=== PATIENT | male | born 1945 | race Caucasian/White ===

== ENCOUNTER 2016-10-26 20:01 | Inpatient (IN) | payer OTHER, MEDICARE ==
[~2016-10-26] VITALS: Ht 162.6 cm; Wt 81.6 kg
[2016-10-26] MEDS ORDERED: LIPITOR10 M1 PO (20:20)
[2016-10-26] MEDS ORDERED: ATIVAN0.5 M1 PO (20:20)
[2016-10-26] MEDS ORDERED: HYDROMORPHONE HC2 M1 PO (20:20)
[2016-10-26] MEDS ORDERED: HYDROMORPHONE HC4 M1 PO (20:20)
[2016-10-26] MEDS ORDERED: METOPROLOL TART25 M1 PO (20:21)
[2016-10-26] MEDS ORDERED: SYNTHROID100 MCG PO (20:23)
[2016-10-26] MEDS ORDERED: KEPPRA PO (20:23)
[2016-10-26] MEDS ORDERED: ZOLOFT100 M1 PO (20:24)
[2016-10-26] MEDS ORDERED: POTASSIUM CHLO20 ME2 PO (20:24)
[2016-10-26] MEDS ORDERED: CARTIA XT180 M1 PO (20:25)
--- NOTE | 2016-10-26 20:28 | ED NEURO DEFICIT/STROKE ---
History of Present Illness General Chief Complaint: Seizure Stated Complaint: BIBA WITH SEIZURE Source: patient Exam Limitations: no limitations Allergies Coded Allergies: Iodinated Contrast Media - Oral and (10/26/16) Reconcile Medications Diltiazem HCl (Cartia Xt) 180 MG CAP.ER.24H 1 CAP PO DAILY HEART/BP (Reported ) Levetiracetam (Keppra XR) 750 MG TAB.ER.24H 4 TAB PO DAILY SEIZURE (Reported) Levothyroxine Sodium (Synthroid) 100 MCG TABLET 1 TAB PO DAILY THYROID ( Reported) Potassium Chloride 20 MEQ TAB.ER.PRT 1 TAB PO BID SUPPLEMENT (Reported) Sertraline HCl (Zoloft) 100 MG TABLET 1 TAB PO DAILY MENTAL HEALTH (Reported) Triage Nurses Notes Reviewed? yes HPI: This patient is a 71-year-old male with past medical history including seizures and TIA who presented to the emergency department today brought in by ambulance for evaluation of questionable seizure and possible stroke. The patient's brother is currently at the bedside. The patient's mother reported that he last saw this patient normal at approximately noon or 1:00 this afternoon. The patient reported that he remembers that he was on the computer the last he can remember and then felt the urge to urinate and got up to go to the bathroom. After that he is not really sure what happened. The patient's brother reported that he found him on the floor of the bathroom with toilet paper bunched up around him. The patient had been trying to call 911, but was unable to do so. The patient's mother reported that he found him on the floor at approximately 7: 10 PM. The patient reported that he was feeling fine prior to the incident. He reported that now he has a slight headache. The patient reported, "I am having trouble with my fine motor skills in my left hand, but I think my gross motor skills are still intact." The patient does not know if he had any uncontrollable defecation or urination. He did not bite his tongue. He is unsure if he hit his head or not. The patient is denying any current chest pain , difficulty breathing, abdominal pain, or back pain. (BIN IGLESIAS,ELIZABETH) Vital Signs & Intake/Output Vital Signs & Intake/Output Vital Signs Date Time Temp Pulse Resp B/P Pulse O2 O2 Flow FiO2 Ox Delivery Rate 10/27 0800 94 Nasal 2.0L Cannula 10/27 0659 98.8 70 18 120/70 94 Nasal 2.0L Cannula 10/27 0107 98.0 92 18 160/80 93 Nasal 2.0L Cannula 10/27 0029 93 Nasal 2.0L Cannula 10/27 0007 92 18 163/87 92 Room Air 2.0L 10/26 2309 98.1 84 18 154/64 99 Nasal 2.0L Cannula 10/26 2130 64 18 141/75 94 Nasal 3.0L Cannula 10/26 2045 99 Room Air 10/26 2045 98.0 89 18 141/75 100 Room Air ED Intake and Output 10/27 0000 10/26 1200 Intake Total 0 Output Total Balance 0 Intake, Oral 0 Patient 220 lb Weight Past History Travel History Traveled to [place] past 21 day No Medical History Any Pertinent Medical History? see below for history Neurological: seizure, TIA Surgical History Surgical History: non-contributory Family History Hx Contributory? No (ELIZABETH STEWARD PA-C) Review of Systems Review of Systems Constitutional: Reports: no symptoms. EENTM: Reports: no symptoms. Respiratory: Reports: no symptoms. Cardiovascular: Reports: no symptoms. GI: Reports: no symptoms. Genitourinary: Reports: no symptoms. Musculoskeletal: Reports: no symptoms. Skin: Reports: no symptoms. Neurological/Psychological: Reports: see HPI. All Other Systems: Reviewed and Negative (ELIZABETH STEWARD PA-C) Physical Exam Physical Exam General Appearance: well developed/nourished, no apparent distress, alert, awake Cranial Nerves: normal hearing, normal speech, PERRL, NO TONGUE DEVIATION. nO FACIAL DROOP. lEFT-SIDED ARM AND LEG PARESTHESIAS Comments: Well-developed well-nourished person in no acute distress HEENT: Head is normocephalic/atraumatic with no bony deformities or step-offs of the skull, moist mucous membranes Left sided visual field deficit aced on confrontation testing. Nose is atraumatic. Neck: Supple. No midline tenderness Back: Normal inspection Cardiovascular: Regular rate and rhythm with no murmurs. No carotid bruits Respiratory: No respiratory distress. Breath sounds clear to auscultation bilaterally Abdomen: Soft, nontender and nondistended Extremity: Normal and equal pulses. Neuro: Alert oriented x3, cranial nerves II through XII grossly intact. Decreased fine motor abilities in the left hand. Left-sided upper and lower extremity weakness. Skin: No appreciable rash on exposed skin, skin is warm and dry. Psych: Mood and affect is normal Core Measures CVA/TIA Diagnosis: Yes Severe Sepsis Present: No Septic Shock Present: No (BIN IGLESIAS,ELIZABETH) Progress Differential Diagnosis: acute glaucoma, Robledo's Palsy, drug intoxication, electrolyte imbalance, encephalitis, intracranial Hem., intracranial mass/tumor, seizure disorder, stroke, subarachnoid Hem., vertebrobasilar insuff. Diagnostic Imaging: Viewed by Me: Radiology Read, CT Scan. Discussed w/RAD: Radiology Read, CT Scan. Radiology Impression: PATIENT: CLIFTON QUIÑONES PRESENT AGE: 71 PATIENT ACCOUNT NO: [id number] : 47 LOCATION: [facility] ORDERING PHYSICIAN: ELIZABETH STEWARD PA-C SERVICE DATE: 10/26/16 EXAM TYPE: CAT - CT HEAD WO IV CONTRAST EXAMINATION: CT HEAD WITHOUT CONTRAST CLINICAL INFORMATION: Left-sided weakness. COMPARISON: None. TECHNIQUE: Contiguous axial imaging was performed from the skull base to vertex without intravenous administration of contrast. DLP: 601 mGy-cm. FINDINGS: There is no evidence of acute intracranial hemorrhage or territorial infarction. No abnormal mass effect or midline shift is seen. Merino to white matter differentiation is well preserved. No extra-axial fluid collections are identified. The ventricles and sulcal spaces are proportionate without hydrocephalus. There is mild periventricular white matter hypoattenuation was is nonspecific but likely reflects a mild degree of ischemic microangiopathy. Focal hypoattenuation within the right cerebellar hemisphere likely reflects old infarct. The osseous structures and soft tissues are unremarkable. The mastoid air cells are fairly well aerated. Mucosal thickening/mucous retention cysts in the inferior aspects of the bilateral maxillary sinuses. IMPRESSION: 1. No acute intracranial pathology. 2. 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 DICTATED BY: JAMSHID STEWART MD DATE/TIME DICTATED:10/26/162049 SENIOR QUALITY METHODS SPECIALIST:ALEJANDRA DATE/TIME TRANSCRIBED:2049 CONFIDENTIAL, DO NOT COPY WITHOUT APPROPRIATE AUTHORIZATION. < Electronically signed in Other Vendor System> SIGNED BY: JAMSHID STEWART MD 10/26/162056 CXR Impression: PATIENT: CLIFTON QUIÑONES PRESENT AGE: 71 PATIENT ACCOUNT NO: [id number] : 47 LOCATION: [facility] ORDERING PHYSICIAN: LEIZABETH STEWARD PA-C SERVICE DATE: 10/26/16 EXAM TYPE: RAD - XRY- PORTABLE CHEST XRAY EXAMINATION: XR PORTABLE CHEST CLINICAL INFORMATION: Pneumonia COMPARISON: None. TECHNIQUE: Portable view of the chest was obtained. FINDINGS: The x-rays taken with rotation toward the left side. This limits evaluation of the cardiomediastinal silhouette. The lungs are clear. The pulmonary vascularity is normal. No pleural effusions or pneumothorax seen. IMPRESSION: No acute pulmonary finding. DICTATED BY: ENOC LOPEZ MD DATE/ TIME DICTATED:10/26/162229 SENIOR QUALITY METHODS SPECIALIST:ALEJANDRA DATE/TIME TRANSCRIBED: 10/26/162229 CONFIDENTIAL, DO NOT COPY WITHOUT APPROPRIATE AUTHORIZATION. < Electronically signed in Other Vendor System> SIGNED BY: ENOC LOPEZ MD 10/26/162237 Initial ED EKG: normal axis, normal intervals, normal sinus rhythm, LVH, no ST T wave changes, 69 bpm Comments: 10/26/2016 8:27:36 PM: Dr. Grier was at the patient's bedside for [id number] evaluation. Atypical seizure disorder versus acute stroke. Uncertain of exact time this patient was last normal period. 10/26/2016 10:47:29 PM: I discussed this patient with on-call neurologist, Dr. Pena. Suggested giving this patient aspirin 325MG daily and ordering an MRI of the brain for tomorrow. This patient will be a telemetry admission, so he was officially handed off to Dr. Grier. (BIN IGLESIAS,ELIZABETH) Plan of Care: Orders Procedure Date/time Status Heart Healthy Diet 10/27 B Active ECHOCARDIOGRAM 10/27 0900 Active TROPONIN LEVEL 10/27 0800 Complete LIPID PANEL 10/27 08 Complete CBC WITHOUT DIFFERENTIAL 10/27 08 Active BASIC ELECTROLYTES PLUS BUN&CR 10/27 08 Complete EKG 10/27 08 Active TROPONIN LEVEL 10/27 0200 Complete EKG 10/27 0200 Active Pathway - chart 10/27 38 Active House Staff 10/27 38 Active Patient Data 10/27 38 Active Code Status 01/15 0039 Active Lab Add-on Test 10/27 UNK Active VTE Mechanical Prophylaxis 10/27 UNK Active MISTAKE 10/27 UNK Active Telemetry/Diaphragm Builder 10/27 UNK Active Precautions 10/27 UNK Active Vital Signs 10/26 2355 Active Teach/Educate 10/26 235 Active Nutritional Intake, Monitor 10/26 2355 Active Isolation 10/26 2355 Active Intake & Output 10/26 235 Active Patient Care Conference 10/26 235 Active Activity/Ambulation 10/26 2355 Active Patient Data 10/26 2318 Active Add-on Test (ER Only) 10/26 223 Active NIH Stroke Scale 10/26 2116 Active OXYGEN SETUP (GEN) 10/26 2109 Active Saline Lock 10/26 2109 Active Admit to inpatient 10/26 2109 Active Vital Signs 10/26 2109 Active Activity/Ambulation 10/26 2109 Active Code Status 10/26 2109 Complete Intake & Output 10/26 2050 Active THYROID STIMULATING HORMONE 10/26 2038 Complete FREE T4 10/26 2038 Complete D-DIMER 10/26 2038 Complete EKG 10/26 2027 Active TROPONIN LEVEL 10/26 2018 Complete PARTIAL THROMBOPLASTIN TIME 10/26 2018 Complete PROTHROMBIN TIME 10/26 2018 Complete PROLACTIN 10/26 2018 Complete COMPREHENSIVE METABOLIC PANEL 10/26 2018 Complete CBC WITHOUT DIFFERENTIAL 10/26 2018 Complete TYPE & SCREEN (NOT X-MATCH) 10/26 2018 Complete Current Medications Sig/Cristo Start time Last Medication Dose Stop Time Status Admin Atorvastatin Calcium 80 MG 1700 10/27 1700 AC (Lipitor) Potassium Chloride 0 .STK-MED ONE 10/27 0110 CAN (K-Dur) Laboratory Tests 10/27/16 0834: Anion Gap 12, Estimated GFR > 60, BUN/Creatinine Ratio 20.0, Troponin I < 0.01, Triglycerides 149, Cholesterol 122, LDL Cholesterol, Calc 46 L, HDL Cholesterol 47, Cholesterol/HDL Ratio 3 10/27/16 0207: Troponin I < 0.01 10/26/162038: Anion Gap 15, Estimated GFR > 60, BUN/Creatinine Ratio 28.8 H, Glucose 95, Calcium 9.9, Total Bilirubin 0.5, AST 26, ALT 33, Alkaline Phosphatase 80, Troponin I < 0.01, Total Protein 6.7, Albumin 4.2, Globulin 2.5, Albumin/ Globulin Ratio 1.7, TSH 2.250, Free T4 1.48, Prolactin 10.4, PT 11.2, INR 1.07, APTT 27, D-Dimer 256 H, CBC w Diff NO MAN DIFF REQ, RBC 4.80, MCV 85.6, MCH 28.8, RDW 13.1, MPV 8.4, Gran % 85.3 H, Lymphocytes % 9.7 L, Monocytes % 3.5, Eosinophils % 1.4, Basophils % 0.1, Absolute Granulocytes 8.6 H, Absolute Lymphocytes 1.0 L, Absolute Monocytes 0.4, Absolute Eosinophils 0.1, Absolute Basophils 0, PUBS MCHC 33.7 Departure Departure Disposition: STILL A PATIENT Condition: Stable Clinical Impression Primary Impression: CVA (cerebral vascular accident) Qualifiers: CVA mechanism: unspecified Qualified Code: I63.9 - Cerebral infarction, unspecified Departure Forms: Customer Survey General Discharge Information Admission Note Documentation of Exam: Documentation of any treatments & extenuating circumstances including Concerns Regarding Discharge (functional status, medication knowledge or non-compliance, living conditions, etc.) that warrant an admission rather than observation: [ This patient is a 71-year-old male with a past medical history including prior TIA and seizure disorder currently on Keppra who presented to the emergency department today brought in by ambulance for possible seizure and to rule out stroke. This patient has complete left-sided neglect and left-sided visual field deficit. This patient will need to be admitted to telemetry for neurology consultation, EEG, trend labs, brain MRI, cardiac monitoring, oxygen therapy, oxygen saturation monitoring, and close monitoring. This patient is a poor candidate for outpatient treatment. Premature discharge could prove medically harmful.] (BIN IGLESIAS,ELIZABETH) PA/EMR IMPLEMENTATION SPECIALIST Co-Sign Statement Statement: ED Attending supervision documentation- x I saw and evaluated the patient. I have also reviewed all the pertinent lab results and diagnostic results. I agree with the findings and the plan of care as documented in the PA's/EMR IMPLEMENTATION SPECIALIST's documentation. [] I have reviewed the ED Record and agree with the PA's/EMR IMPLEMENTATION SPECIALIST's documentation. [] Additions or exceptions (if any) to the PAs/EMR IMPLEMENTATION SPECIALIST's note and plan are summarized below: [] (VINCE MAJOR,SOY)
--- NOTE | 2016-10-26 20:57 | CT SCAN REPORT ---
EXAMINATION: CT HEAD WITHOUT CONTRAST CLINICAL INFORMATION: Left-sided weakness. COMPARISON: None. TECHNIQUE: Contiguous axial imaging was performed from the skull base to vertex without intravenous administration of contrast. DLP: 601 mGy-cm. FINDINGS: There is no evidence of acute intracranial hemorrhage or territorial infarction. No abnormal mass effect or midline shift is seen. Merino to white matter differentiation is well preserved. No extra-axial fluid collections are identified. The ventricles and sulcal spaces are proportionate without hydrocephalus. There is mild periventricular white matter hypoattenuation was is nonspecific but likely reflects a mild degree of ischemic microangiopathy. Focal hypoattenuation within the right cerebellar hemisphere likely reflects old infarct. The osseous structures and soft tissues are unremarkable. The mastoid air cells are fairly well aerated. Mucosal thickening/mucous retention cysts in the inferior aspects of the bilateral maxillary sinuses. IMPRESSION: 1. No acute intracranial pathology. 2. 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
[2016-10-26 20:59] LABS: ABSOLUTE BASOPHIL COUNT 0 /CUMM (0.0-0.2); ABSOLUTE EOSINOPHIL COUNT 0.1 /CUMM (0.0-0.7); ABSOLUTE GRANULOCYTE CT 8.6 /CUMM (1.4-6.5); ABSOLUTE MONOCYTE COUNT 0.4 /CUMM (0.10-0.60); BASOPHIL % 0.1 % (0.0-2.0); EOSINOPHIL % 1.4 % (0-5); GRANULOCYTE % 85.3 % (42.2-75.2); HEMATOCRIT 41.1 % (42-52); MEAN CORPUSCULAR HGB 28.8 PG (27.0-31.0); MEAN CORPUSCULAR HGB CONC 33.7 G/DL (33.0-37.0); MEAN CORPUSCULAR VOLUME 85.6 FL (80.0-94.0); MEAN PLATELET VOLUME 8.4 FL (7.4-10.4); PLATELET COUNT 290 /CUMM (130-400); RBC DISTRIBUTION WIDTH 13.1 % (11.5-14.5); WHITE BLOOD CELL COUNT 10.1 /CUMM (4.8-10.8)
[2016-10-26 21:13] LABS: PT 11.2 SEC (9.4-12.5); PTT 27 SEC (25-37)
--- NOTE | 2016-10-26 22:38 | RADIOLOGY REPORT ---
EXAMINATION: XR PORTABLE CHEST CLINICAL INFORMATION: Pneumonia COMPARISON: None. TECHNIQUE: Portable view of the chest was obtained. FINDINGS: The x-rays taken with rotation toward the left side. This limits evaluation of the cardiomediastinal silhouette. The lungs are clear. The pulmonary vascularity is normal. No pleural effusions or pneumothorax seen. IMPRESSION: No acute pulmonary finding.
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
[2016-10-27 01:07] VITALS: BP 160/80
--- NOTE | 2016-10-27 04:31 | Admission Certification ---
Admission Certification Certification Statement - As attending physician, I certify that at the time of - admission, based on clinical presentation, severity of - symptoms, need for further diagnostic testing and - therapeutic interventions, and risk of adverse outcomes - without in-hospital treatment, in my clinical assessment, - this patient requires an acute hospital stay for a minimum - of two nights or longer. I have also considered psychsocial - factors such as support system, advanced age, financial - issues, cognitive issues, and failed out-patient treatments, - past re-admission history, safety of patient, and lack of - compliance as applicable. Specific rationale supporting this admission is: Stroke vs. Seizure.
[2016-10-27 06:59] VITALS: BP 120/70
--- NOTE | 2016-10-27 10:46 | ULTRASOUND REPORT ---
EXAMINATION: US DUPLEX CAROTID, BILATERAL CLINICAL INDICATION: Acute onset neuro deficit COMPARISON: None. TECHNIQUE: Duplex ultrasound with spectral analysis and color flow imaging was performed of both carotid arteries. FINDINGS: On the right, there is no significant plaque present at the carotid bifurcation. In the distal CCA, the peak systolic velocity is 84 cm/sec. In the proximal ICA, the peak systolic velocity is 42 cm/sec, and the end diastolic velocity is 11 cm/sec. Peak systolic velocity of the external carotid artery is 60 cm/s. . On the left, there is no significant plaque present at the carotid bifurcation. In the distal CCA, the peak systolic velocity is 70 cm/sec. In the proximal ICA, the peak systolic velocity is 50 cm/sec, and the end diastolic velocity is 12 cm/sec. Peak systolic velocity of the external carotid artery is 93 cm/s. The vertebral arteries show antegrade flow with normal waveforms bilaterally. IMPRESSION: 1. The right internal carotid artery shows no hemodynamically significant stenosis. 2. The left internal carotid artery shows no hemodynamically significant stenosis. Right and left internal carotid artery stenoses fall in the 0-49% category by duplex Doppler velocity spectral waveform analysis.
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
[2016-10-27 16:00] VITALS: BP 120/66
[2016-10-27 19:07] VITALS: BP 142/82
[2016-10-27 23:54] VITALS: BP 130/70
[2016-10-28 08:00] VITALS: BP 140/70
[2016-10-28 08:32] LABS: ABSOLUTE BASOPHIL COUNT 0 /CUMM (0.0-0.2); ABSOLUTE EOSINOPHIL COUNT 0.3 /CUMM (0.0-0.7); ABSOLUTE GRANULOCYTE CT 5.7 /CUMM (1.4-6.5); ABSOLUTE LYMPH COUNT 1.3 /CUMM (1.2-3.4); ABSOLUTE MONOCYTE COUNT 0.8 /CUMM (0.10-0.60); BASOPHIL % 0.2 % (0.0-2.0); EOSINOPHIL % 3.8 % (0-5); GRANULOCYTE % 70.8 % (42.2-75.2); HEMATOCRIT 39.8 % (42-52); MEAN CORPUSCULAR HGB 29.1 PG (27.0-31.0); MEAN CORPUSCULAR HGB CONC 33.9 G/DL (33.0-37.0); MEAN PLATELET VOLUME 8.4 FL (7.4-10.4); PLATELET COUNT 233 /CUMM (130-400); RBC DISTRIBUTION WIDTH 13.1 % (11.5-14.5); RED BLOOD CELL CT 4.63 /CUMM (4.70-6.10)
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
--- NOTE | 2016-10-28 14:13 | MRI REPORT ---
MR BRAIN WITHOUT IV CONTRAST CLINICAL INFORMATION: Confusion and left-sided weakness. COMPARISON: Head CT 10/26/2016. TECHNIQUE: MRI of the brain without contrast was obtained using routine sequences. FINDINGS: There is no hydrocephalus, extra-axial surface collection, or herniation. Mild T2 signal changes within the supratentorial white matter suggesting mild chronic microangiopathy. 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 The major flow voids at the skull base are preserved. Accounting for artifact on diffusion-weighted series, no acute infarcts are appreciated. There is no intracranial hemorrhage on the gradient recalled echo acquisition. The midline structures are normal. The cerebellar tonsils are normally positioned. The cerebellum and brainstem are normal. The craniocervical junction is normal. Osseous marrow signal intensity is homogenous. The visualized soft tissues are unremarkable. There is mild mucosal thickening throughout the ethmoid air cells bilaterally. Retention cyst within the left maxillary sinus inferiorly mild mucosal thickening within the maxillary sinuses bilaterally. Mastoid air cells are well-aerated. IMPRESSION: - No acute intracranial findings. No acute infarcts. - Mild chronic microangiopathy. 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
--- NOTE | 2016-10-28 14:38 | PN- Neurology ---
Subjective Subjective: confused, as before. no seizure activity reported Review of Systems: denied headache Objective Vital Signs and I&Os Vital Signs Date Time Temp Pulse Resp B/P Pulse O2 O2 Flow FiO2 Ox Delivery Rate 10/28 0800 97.6 64 20 140/70 93 Room Air 10/27 2354 98.0 72 20 130/70 95 Room Air 10/27 1907 99.0 58 20 142/82 92 Room Air 10/27 1604 98 Nasal 2.0L Cannula 10/27 1600 97.4 64 18 120/66 92 Room Air 10/27 1528 97.4 64 18 120/66 92 Room Air Intake & Output 10/28 1600 10/28 0800 10/28 0000 10/27 1600 10/27 0800 10/27 0000 Intake Total 400 120 300 30 240 0 Output Total 902 123 6888 Balance 400 -180 300 -470 -1010 0 Intake, IV 20 Intake, Oral 400 120 280 30 240 0 Output, Urine [phone] Patient 180 lb 220 lb Weight Physical Exam: Awake, language OK speech clear, confused. 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 left sensory extinction and asteriognosis: could not recognise coin or spoon manager of financial reporting equal Current Medications: Current Medications Sig/Cristo Start time Last Medication Dose Route Stop Time Status Admin Aspirin Buffered 81 MG DAILY 10/27 1000 AC 10/28 PO 0947 Atorvastatin Calcium 80 MG 1700 10/27 1700 AC 10/27 PO 1718 Diltiazem HCl 180 MG DAILY 10/27 1000 AC 10/28 PO 0947 Enoxaparin Sodium 40 MG DAILY 10/28 1000 AC 10/28 SC 0952 Levetiracetam 1,500 MG BID 10/27 1000 AC 10/28 PO 0947 Levothyroxine Sodium 0.1 MG DAILY AC 10/27 0700 AC 10/28 PO 0646 Potassium Chloride 20 MEQ BID 10/27 0014 AC 10/28 PO 0947 Sertraline HCl 100 MG DAILY 10/27 1000 AC 10/28 PO 0947 Results Last 24 Hours of Lab Results: Laboratory Tests 10/28 0710 Chemistry Sodium (137 - 145 mmol/L) 142 Potassium (3.5 - 5.1 mmol/L) 4.4 Chloride (98 - 107 mmol/L) 103 Carbon Dioxide (22 - 30 mmol/L) 33 H Anion Gap (5 - 16) 6 BUN (9 - 20 mg/dL) 18 Creatinine (0.7 - 1.2 mg/dL) 0.9 Estimated GFR (>60 ml/min) > 60 BUN/Creatinine Ratio (7 - 25 %) 20.0 Hematology CBC w Diff NO MAN DIFF REQ WBC (4.8 - 10.8 /CUMM) 8.0 RBC (4.70 - 6.10 /CUMM) 4.63 L Hgb (14.0 - 18.0 G/DL) 13.5 L Hct (42 - 52 %) 39.8 L MCV (80.0 - 94.0 FL) 86.0 MCH (27.0 - 31.0 PG) 29.1 RDW (11.5 - 14.5 %) 13.1 Plt Count (130 - 400 /CUMM) 233 MPV (7.4 - 10.4 FL) 8.4 Gran % (42.2 - 75.2 %) 70.8 Lymphocytes % (20.5 - 51.1 %) 15.6 L Monocytes % (1.7 - 9.3 %) 9.6 H Eosinophils % (0 - 5 %) 3.8 Basophils % (0.0 - 2.0 %) 0.2 Absolute Granulocytes (1.4 - 6.5 /CUMM) 5.7 Absolute Lymphocytes (1.2 - 3.4 /CUMM) 1.3 Absolute Monocytes (0.10 - 0.60 /CUMM) 0.8 H Absolute Eosinophils (0.0 - 0.7 /CUMM) 0.3 Absolute Basophils (0.0 - 0.2 /CUMM) 0 PUBS MCHC (33.0 - 37.0 G/DL) 33.9 Recent Imaging Studies: MRI brain: There is no hydrocephalus, extra-axial surface collection, or herniation. Mild T2 signal changes within the supratentorial white matter suggesting mild chronic microangiopathy. There are multiple chronic lacunar infarcts within the cerebellar hemispheres bilaterally as well as the dorsal ilssy. The major flow voids at the skull base are preserved. Accounting for artifact on diffusion-weighted series, no acute infarcts are appreciated. There is no intracranial hemorrhage on the gradient recalled echo acquisition. The midline structures are normal. The cerebellar tonsils are normally positioned. The cerebellum and brainstem are normal. The craniocervical junction is normal. Osseous marrow signal intensity is homogenous. The visualized soft tissues are unremarkable. There is mild mucosal thickening throughout the ethmoid air cells bilaterally. Retention cyst within the left maxillary sinus inferiorly mild mucosal thickening within the maxillary sinuses bilaterally. Mastoid air cells are well-aerated. IMPRESSION: - No acute intracranial findings. No acute infarcts. - Mild chronic microangiopathy. 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 Assessment/Plan Assessment: Suspect event leading to admission was a partial complex seizure and that clinical deficits of right parietal dysfunction represent TBI now on increased Keppra dose Plan: EEG pending contact hospital in [place] for discharge summary
--- NOTE | 2016-10-28 15:46 | Cons- Cardiology ---
See Addendum General Information and HPI Consulting Request Date of Consult: 10/28/16 Requested By: BROOKE MAJOR,JUAN Reason for Consult: Possible CVA History of Present Illness: The patient is a 71-year-old male with history of paroxysmal SVT, stable on diltiazem, who was admitted for possible CVA/TIA versus seizure. He was in his usual state of health until October 26 when he was urinating when he developed difficulty with fine motor activity localized on his left side. He also noted dizziness, nausea, and increased hand tremor. His usual intention tremor. He called EMS. Upon the arrival of EMS, he was noted to have an episode of dysarthria. No chest pain. No syncope. No recent palpitations. No shortness of breath. No nausea or vomiting. 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 Allergies/Medications Allergies: Coded Allergies: Iodinated Contrast Media - Oral and (10/26/16) Home Med List: Diltiazem HCl (Cartia Xt) 180 MG CAP.ER.24H 1 CAP PO DAILY HEART/BP (Reported ) Levetiracetam (Keppra XR) 750 MG TAB.ER.24H 4 TAB PO DAILY SEIZURE (Reported) Levothyroxine Sodium (Synthroid) 100 MCG TABLET 1 TAB PO DAILY THYROID ( Reported) Potassium Chloride 20 MEQ TAB.ER.PRT 1 TAB PO BID SUPPLEMENT (Reported) Sertraline HCl (Zoloft) 100 MG TABLET 1 TAB PO DAILY MENTAL HEALTH (Reported) Current Medications: Current Medications Sig/Cristo Start time Last Medication Dose Route Stop Time Status Admin Aspirin Buffered 81 MG DAILY 10/27 1000 AC 10/28 PO 0947 Atorvastatin Calcium 80 MG 1700 10/27 1700 AC 10/27 PO 1718 Diltiazem HCl 180 MG DAILY 10/27 1000 AC 10/28 PO 0947 Enoxaparin Sodium 40 MG DAILY 10/28 1000 AC 10/28 SC 0952 Levetiracetam 1,500 MG BID 10/27 1000 AC 10/28 PO 0947 Levothyroxine Sodium 0.1 MG DAILY AC 10/27 0700 AC 10/28 PO 0646 Potassium Chloride 20 MEQ BID 10/27 0014 AC 10/28 PO 0947 Sertraline HCl 100 MG DAILY 10/27 1000 AC 10/28 PO 0947 Review of Systems Review of Systems: No rash. No diaphoresis. No hemoptysis. No hematemesis. No melena. All other systems were reviewed, and were noted to be negative. Past History Travel History Traveled to [place] past 21 day No Medical History Neurological: seizure, TIA EENT: NONE Cardiovascular: SVT Respiratory: asthma Gastrointestinal: NONE Hepatic: NONE Renal: NONE Musculoskeletal: MUSCLE CRAMPS Psychiatric: depression Endocrine: HYPOTHYROID Blood Disorders: NONE Cancer(s): NONE Surgical History Surgical History: non-contributory Family History Relations & Conditions If Any: FATHER FH: stroke Psychosocial History Where Do You Live? 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[place] Exam & Diagnostic Data Vital Signs and I&O Vital Signs Date Time Temp Pulse Resp B/P Pulse O2 O2 Flow FiO2 Ox Delivery Rate 10/28 08 97.6 64 20 140/70 93 Room Air 10/27 2354 98.0 72 20 130/70 95 Room Air 10/27 1907 99.0 58 20 142/82 92 Room Air 10/27 1604 98 Nasal 2.0L Cannula 10/27 1600 97.4 64 18 120/66 92 Room Air Intake & Output 10/28 1600 10/28 0800 10/28 0000 10/27 1600 10/27 0800 10/27 0000 Intake Total 400 120 300 30 240 0 Output Total 658 490 9893 Balance 400 -180 300 -470 -1010 0 Intake, IV 20 Intake, Oral 400 120 280 30 240 0 Output, Urine [phone] Patient 180 lb 220 lb Weight Physical Exam: Gen: The patient is in no acute distress HEENT: Normal nose, ears, and oropharynx. Pupils equal bilaterally. Conjunctiva normal. Neck: Supple with no JVD, no masses, and no thyromegaly Lungs: Clear to auscultation with normal respiratory effort Heart: RRR, S1, S2, no murmurs. No peripheral edema, 2+ pulses in the lower extremities bilaterally Abdomen: Soft, nontender, no masses. No hepatomegaly. No splenomegaly Extremities: No clubbing or cyanosis. Normal muscle strength in the upper and lower extremities Skin: Normal skin turgor with no skin ulcers or lesions noted. Neuro: Cranial nerves intact. Sensation intact Psych: Alert and oriented 3 with appropriate affect Assessment/Plan Assessment/Plan The patient is a 71-year-old male with history of SVT and seizures who presented with dysarthria, confusion, and motor deficit. He is being evaluated for possible CVA versus seizure versus sequelae secondary to old TBI. He appears to be stable from a cardiac standpoint with no recent cardiac symptoms. He is in sinus rhythm on telemetry. Recommendations: * Echocardiogram to evaluate for structural heart disease or cardiac source of embolism * Continue aspirin * Continue diltiazem CD for paroxysmal SVT * Continue to monitor for arrhythmias on telemetry. Consult Acknowledgment - Thank you for your consult request.
[2016-10-28 15:54] VITALS: BP 110/62
--- NOTE | 2016-10-28 16:15 | ELECTROENCEPHALOGRAM REPORT ---
Electroencephalogram Report ELECTROENCEPHALOGRAM RESULTS Date of service: 10/28/16 Ordering Provider: Lexis Mohan MD JUMPBASTING FACING BASTER: FLORINA Jon EEG NUMBER: [id number] TEST UTILIZES: 10-20 system, 21-lead 18 channel digital EEG recording PERTINENT HX/PHYSICAL/NEURO FINDINGS/CLINICAL DIAG: Possible recent seizure, right parietal deficits on exam MEDICATIONS: Keppram, diltiazem, atorvastatin, level thyroxine, sertraline, aspirin INTERPRETATION: In wakefulness there is a well-formed 10-11 Hz posterior alpha rhythm on the left which is not seen clearly on the right. On the right there is intermittent moderate amplitude slow activity in the theta frequency range. Occasional high amplitude sharply contoured slow waves occur on the right primarily at the F8 electrode position in the anterior temporal region. At other times muscle and movement artifact are noted. Hyperventilation could not be performed by the patient but photic was done and adds no additional information IMPRESSION: Abnormal due to right hemispheric slowing and infrequent sharp slow waves which are potentially epileptogenic in the right anterior temporal region
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
[2016-10-28] MEDS ORDERED: ASPIRIN EC81 M1 PO (21:39)
[2016-10-28] MEDS ORDERED: ATORVASTATIN CA80 M1 PO (21:39)
[2016-10-28] MEDS ORDERED: KEPPRA500 M1 PO (21:39)
--- NOTE | 2016-10-28 21:41 | Patient Discharge Instructions ---
See Addendum Discharge Instructions General Discharge Information You were seen/treated for: TIA Seizure Special Instructions: -Please make an appointment to see PCP, Dr. Landa within a week of discharge ( referral provided). -Please make an appointment to see log truck driver, Dr. Manley within a week of discharge (referral provided); you will need an echocardiogram as outpatient. -Please make an appointment to see neurologist, Dr. Pena within a week of discharge (referral provided). -Please take your medications as instructed. -PT/OT/speech therapy. -Please return to the hospital if your symptoms not improve/worsen. Diet Recommended Diet: Heart Healthy Activity Additional ACTIVITY Info: As tolerated, will need a rolling walker, PT/OT follow-up. Acute Coronary Syndrome Inclusion Criteria At DC or during hospital stay patient has or had the following: ACS DIAGNOSIS No Discharge Core Measures Meds if any: Prescribed or Continued at Discharge Meds if any: NOT Prescribed or Continued at Discharge Congestive Heart Failure Inclusion Criteria At DC or during hospital stay patient has or had the following: CHF DIAGNOSIS No Discharge Core Measures Meds if any: Prescribed or Continued at Discharge Meds if any: NOT Prescribed or Continued at Discharge Cerebrovascular accident Inclusion Criteria At DC or during hospital stay patient has or had the following: CVA/TIA Diagnosis No Discharge Core Measures Meds if any: Prescribed or Continued at Discharge Antithrombotic Yes Statin (required if LDL =>70) Yes Anticoagulant No (not indicated) Meds if any: NOT Prescribed or Continued at Discharge Venous thromboembolism Inclusion Criteria VTE Diagnosis No VTE Type NONE VTE Confirmed by (Test) NONE Discharge Core Measures - Per Current guidelines, there needs to be overlap - treatment for the first 5 days of Warfarin therapy. - If discharged on Warfarin prior to 5 days of - overlap therapy, the patient will need to be - assessed for post discharge needs including - *Post discharge parental anticoagulation - *Warfarin and/or parental anticoagulation education - *Follow up date to check INR post discharge At least 5 days overlap therapy as Inpatient No Meds if any: Prescribed or Continued at Discharge Note: Overlap Therapy is Warfarin and Anticoagulant Meds if any: NOT Prescribed or Continued at Discharge
[2016-10-28 23:17] VITALS: BP 130/80
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
[2016-10-29 07:56] LABS: ABSOLUTE BASOPHIL COUNT 0 /CUMM (0.0-0.2); ABSOLUTE EOSINOPHIL COUNT 0.3 /CUMM (0.0-0.7); ABSOLUTE MONOCYTE COUNT 0.8 /CUMM (0.10-0.60); BASOPHIL % 0.1 % (0.0-2.0); EOSINOPHIL % 4.6 % (0-5); GRANULOCYTE % 70.6 % (42.2-75.2); HEMATOCRIT 38.3 % (42-52); MEAN CORPUSCULAR HGB 29.5 PG (27.0-31.0); MEAN CORPUSCULAR HGB CONC 34.2 G/DL (33.0-37.0); MEAN CORPUSCULAR VOLUME 86.3 FL (80.0-94.0); MEAN PLATELET VOLUME 8.8 FL (7.4-10.4); PLATELET COUNT 209 /CUMM (130-400); RBC DISTRIBUTION WIDTH 12.8 % (11.5-14.5); RED BLOOD CELL CT 4.44 /CUMM (4.70-6.10); WHITE BLOOD CELL COUNT 7.2 /CUMM (4.8-10.8)
[2016-10-29 08:00] VITALS: BP 112/20
--- NOTE | 2016-10-29 09:08 | Event Note ---
Event Note Event Note: Spoke VIA phone w/neurologist operational risk analyst Dr. Girard Re EEG findings. He does not suggest to increase dose of Keppra at this point as he is on Max dose. He recommneds outpatient follow up with Dr. Pena .
--- NOTE | 2016-10-29 09:15 | PN- Cardiology ---
Subjective Subjective: The patient reports that he is feeling better. His neurologic symptoms are improving. No palpitations. No chest pain. No shortness of breath. He has not had any SVT or other arrhythmias on telemetry. Objective Vital Signs and I&Os Vital Signs Date Time Temp Pulse Resp B/P Pulse O2 O2 Flow FiO2 Ox Delivery Rate 10/29 08 97.8 59 16 112/20 95 10/28 2317 97.9 68 12 130/80 93 Room Air 10/28 1554 97.6 68 20 110/62 93 Intake & Output 10/29 1600 10/29 0800 10/29 0000 10/28 1600 10/28 0800 10/28 0000 Intake Total 360 720 400 120 300 Output Total 300 Balance 360 720 400 -180 300 Intake, IV 20 Intake, Oral 360 720 400 120 280 Number 1 Bowel Movements Output, Urine 300 Physical Exam: Gen: NAD HEENT: normal Lungs: clear to auscultation, normal resp. effort Heart: RRR, S1, S2, no murmurs Abdomen: Soft, nontender, no masses Extremities: No clubbing, cyanosis, or edema. Neuro: Alert and oriented x 3, cranial nerves intact Current Medications: Current Medications Sig/Cristo Start time Last Medication Dose Route Stop Time Status Admin Aspirin Buffered 81 MG DAILY 10/27 1000 AC 10/28 PO 0947 Atorvastatin Calcium 80 MG 1700 10/27 1700 AC 10/28 PO 1707 Diltiazem HCl 180 MG DAILY 10/27 1000 AC 10/28 PO 0947 Enoxaparin Sodium 40 MG DAILY 10/28 1000 AC 10/28 SC 0952 Levetiracetam 1,500 MG BID 10/27 1000 AC 10/28 PO 2109 Levothyroxine Sodium 0.1 MG DAILY AC 10/27 0700 AC 10/29 PO 0611 Potassium Chloride 20 MEQ BID 10/27 0014 AC 10/28 PO 2108 Sertraline HCl 100 MG DAILY 10/27 1000 AC 10/28 PO 0947 Results Last 48 Hrs of Labs/Mics: Laboratory Tests 10/29/16 0615: Anion Gap 10, Estimated GFR > 60, BUN/Creatinine Ratio 23.3 10/29/16 0610: CBC w Diff NO MAN DIFF REQ, RBC 4.44 L, MCV 86.3, MCH 29.5, RDW 12.8, MPV 8.8, Gran % 70.6, Lymphocytes % 13.9 L, Monocytes % 10.8 H, Eosinophils % 4.6, Basophils % 0.1, Absolute Granulocytes 5.0, Absolute Lymphocytes 1.0 L, Absolute Monocytes 0.8 H, Absolute Eosinophils 0.3, Absolute Basophils 0, PUBS MCHC 34.2 10/28/16 0710: Anion Gap 6, Estimated GFR > 60, BUN/Creatinine Ratio 20.0, CBC w Diff NO MAN DIFF REQ, RBC 4.63 L, MCV 86.0, MCH 29.1, RDW 13.1, MPV 8.4, Gran % 70.8, Lymphocytes % 15.6 L, Monocytes % 9.6 H, Eosinophils % 3.8, Basophils % 0.2, Absolute Granulocytes 5.7, Absolute Lymphocytes 1.3, Absolute Monocytes 0.8 H, Absolute Eosinophils 0.3, Absolute Basophils 0, PUBS MCHC 33.9 Assessment/Plan Assessment/Plan 1. History of paroxysmal SVT 2. History of seizures 3. New neurologic deficit, likely secondary to seizure Recommendations: * Echocardiogram pending. If the patient is ready for discharge, this could be done as an outpatient * Continue to monitor on telemetry for SVT or other arrhythmias. * Continue atorvastatin and diltiazem * Follow up in 2 weeks after discharge Continue telemetry? Yes
[2016-10-29] MEDS ORDERED: ATORVASTATIN CA80 M1 PO (10:06)
[2016-10-29] MEDS ORDERED: ZOLOFT100 M1 PO (10:07)
== END 2016-10-29 14:55 | disposition home health service (06) | DRG 101 ==
LOC: ENRESERVDT → ENRESERVTM → ERH 20:01 → 1NO 21:10 → ERHI 21:10 → ENPENDDIS 21:10 → 1NO 10-27 18:30
PROVIDERS: Internal Medicine; Physician Assistant; Student in an Organized Health Care Education/Training Program; ADMIT Student in an Organized Health Care Education/Training Program
DX: R56.9 Unspecified convulsions (principal); H53.462 Homonymous bilateral field defects, left side; F32.9 Major depressive disorder, single episode, unspecified; R29.818 Other symptoms and signs involving the nervous system; E03.9 Hypothyroidism, unspecified; Z87.820 Personal history of traumatic brain injury
CPT/HCPCS: 1NP; 70551; ERO; 36415; 82436; 90662; 93005; 93010; 95816; 97116-GO; 97161-GP; 97530-GO; J1650

== ENCOUNTER 2018-01-02 01:14 | Inpatient (IN) | payer OTHER, MEDICARE ==
[~2018-01-02] VITALS: Ht 170.2 cm; Wt 90.5 kg
[~2018-01-02 01:14] MED LIST: ASPIRIN EC81 M1 PO; ATIVAN0.5 M1 PO; ATORVASTATIN CA80 M1 PO; CARTIA XT180 M1 PO; HYDROMORPHONE HC2 M1 PO; HYDROMORPHONE HC4 M1 PO; KEPPRA PO; KEPPRA500 M1 PO; LIPITOR10 M1 PO; METOPROLOL TART25 M1 PO; POTASSIUM CHLO20 ME2 PO; SYNTHROID100 MCG PO; ZOLOFT100 M1 PO
--- NOTE | 2018-01-02 01:17 | ED AMS/SEIZURE/WEAK/DIZZY ---
History of Present Illness General Chief Complaint: Seizure Stated Complaint: BIBA FOR SEIZURE Source: EMS Exam Limitations: clinical condition Vital Signs & Intake/Output Vital Signs & Intake/Output Vital Signs Date Time Temp Pulse Resp B/P B/P Pulse O2 O2 Flow FiO2 Mean Ox Delivery Rate 01/02 0155 89 20 142/73 91 Nasal 3.0L Cannula 01/02 0125 99.6 113 20 166/80 92 Non 100% ReBreather Allergies Coded Allergies: Iodinated Contrast- Oral and IV Dye (IODINATED CONTRAST MEDIA - ORAL AND) (10/26) Reconcile Medications Aspirin (Ecotrin*) 81 MG TABLET.DR 1 TAB PO DAILY Heart Atorvastatin Calcium 80 MG TABLET 1 TAB PO DAILY Cholesterol Diltiazem HCl (Cartia Xt) 180 MG CAP.ER.24H 1 CAP PO DAILY HEART/BP (Reported ) Levetiracetam (Keppra) 500 MG TABLET 1,500 MG PO BID Seizure Levothyroxine Sodium (Synthroid) 100 MCG TABLET 1 TAB PO DAILY THYROID ( Reported) Potassium Chloride 20 MEQ TAB.ER.PRT 1 TAB PO BID SUPPLEMENT (Reported) Sertraline HCl (Zoloft) 100 MG TABLET 1 TAB PO DAILY MENTAL HEALTH Triage Nurses Notes Reviewed? yes Onset: Abrupt Duration: minute(s): Timing: recent history Injury Environment: home Severity: moderate, severe Modifying Factors: Worsens With: other. Associated Symptoms: seizure HPI: 72 yo gentleman h/o seizure disorder presents with active seizures. Per the medics, he began seizing 30 minutes prior to arrival. He had left arm shaking and left eye gaze, associated with unresponsiveness. Past History Travel History Traveled to [place] past 21 day No Medical History Any Pertinent Medical History? see below for history Neurological: seizure, TIA EENT: NONE Cardiovascular: SVT Respiratory: asthma Gastrointestinal: NONE Hepatic: NONE Renal: NONE Musculoskeletal: MUSCLE CRAMPS Psychiatric: depression Endocrine: HYPOTHYROID Blood Disorders: NONE Cancer(s): NONE History of MRSA: No History of VRE: No History of CDIFF: No Surgical History Surgical History: non-contributory Psychosocial History What is your primary language Surinamese Family History Family History, If Any: FATHER FH: stroke Hx Contributory? No Review of Systems Review of Systems Constitutional: Reports: no symptoms. EENTM: Reports: no symptoms. Respiratory: Reports: no symptoms. Cardiovascular: Reports: no symptoms. GI: Reports: no symptoms. Genitourinary: Reports: no symptoms. Musculoskeletal: Reports: no symptoms. Skin: Reports: no symptoms. Neurological/Psychological: Reports: no symptoms. Hematologic/Endocrine: Reports: no symptoms. Immunologic/Allergic: Reports: no symptoms. All Other Systems: Reviewed and Negative Physical Exam Physical Exam General Appearance: well developed/nourished, moderate distress Head: atraumatic, normal appearance Eyes: Bilateral: normal appearance, other (left eye gaze bilaterally). Ears, Nose, Throat: normal pharynx, normal ENT inspection, moist mucus membranes Neck: normal inspection, supple, full range of motion Respiratory: normal breath sounds, chest non-tender, no respiratory distress, quiet respiration, lungs clear Cardiovascular: regular rate/rhythm Gastrointestinal: normal bowel sounds, soft, non-tender Back: normal inspection Extremities: normal range of motion Neurologic/Psych: left arm tonic-clonic seizure activity, left eye preference. Core Measures ACS in differential dx? No CVA/TIA Diagnosis No Sepsis Present: No Sepsis Focused Exam Completed? No Progress Differential Diagnosis: alcohol intoxication, seizure disorder, subarachnoid Hem. Plan of Care: Orders Procedure Date/time Status Nothing by Mouth 01/02 B Active Saline Lock 01/03 352 Active Misc Message 01/03 352 Active ED Holding Orders 01/03 352 Active Admit to inpatient 01/03 352 Active Vital Signs 01/03 352 Active Code Status 01/03 352 Active ARTERIAL BLOOD GAS (GEN) 01/02 0250 Complete RAPID VIRAL INFLUENZA A 01/02 157 Active BLOOD CULTURE 01/02 0130 Active BLOOD CULTURE 01/02 012 Active URINE DRUG SCREEN FOR ER ONLY 01/02 117 Complete URINALYSIS 01/02 117 Complete TROPONIN LEVEL 01/02 117 Complete PROLACTIN 01/02 117 Complete LIPASE 01/02 117 Complete HEPATIC FUNCTION PANEL 01/02 117 Complete ETHANOL 01/02 117 Complete CBC WITHOUT DIFFERENTIAL 01/02 117 Complete BASIC METABOLIC PANEL 01/02 117 Complete AMYLASE 01/02 117 Complete EKG 01/02 117 Active Laboratory Tests 01/02/18 0310: pH 7.42, pCO2 41, pO2 64 L, HCO3 26, ABG O2 Sat (Measured) 92.0 L, P-50 (Temp Corrected) N, Carboxyhemoglobin 0 L, O2 Concentration % RA, Phlebotomy Draw Site RIGHT RADIAL 01/02/18 0155: Urine Opiates Screen < 100, Methadone Screen 53, Barbiturate Screen < 60, Ur Phencyclidine Scrn < 6.00, Amphetamines Screen < 100, U Benzodiazepines Scrn 119 , Urine Cocaine Screen < 50, Urine Cannabis Screen < 5.00, Urinalysis HEAVY H, Urine Color YEL, Urine Clarity HAZY H, Urine pH 5.5, Ur Specific [place] >= 1.030, Urine Protein 100 H, Urine Ketones NEG, Urine Nitrite NEG, Urine Bilirubin NEG, Urine Urobilinogen 0.2, Ur Leukocyte Esterase NEG, Ur Microscopic SEDIMENT EXAMINED, Urine RBC 1-3, Urine WBC RARE, Ur Epithelial Cells FEW, Urine Bacteria RARE H, Urine Mucus MOD H, Urine Hemoglobin TRACE-INTACT H, Urine Glucose NEG 01/02/18133: Anion Gap 23 H, Estimated GFR > 60, BUN/Creatinine Ratio 17.0, Glucose 127 H, Calcium 10.1, Total Bilirubin 0.5, Direct Bilirubin 0.4, AST 34, ALT 49, Alkaline Phosphatase 115, Troponin I < 0.01, Total Protein 7.0, Albumin 4.6, Amylase 200 H, Lipase 235, Prolactin 22.9 H, CBC w Diff NO MAN DIFF REQ, RBC 5.00, MCV 85.3, MCH 29.0, MCHC 34.0, RDW 13.0, MPV 7.7, Gran % 85.0 H, Lymphocytes % 9.8 L, Monocytes % 3.9, Eosinophils % 1.1, Basophils % 0.2, Absolute Granulocytes 10.8 H, Absolute Lymphocytes 1.2, Absolute Monocytes 0.5, Absolute Eosinophils 0.1, Absolute Basophils 0, Serum Alcohol < 10.0 Microbiology 01/02 157 NASOPHARYN: Influenza Virus A & B Rapid Smear - ORD 01/03 136 BLOOD: Blood Culture - RECD 01/02 130 BLOOD: Blood Culture - RECD Diagnostic Imaging: Viewed by Me: Radiology Read, CT Scan. Discussed w/RAD: Radiology Read, CT Scan. Radiology Impression: PATIENT: CLIFTON QUIÑONES PRESENT AGE: 72 PATIENT ACCOUNT NO: [id number] : 47 LOCATION: [facility] ORDERING PHYSICIAN: Tommy Rosas MD SERVICE DATE: 01/02/18 EXAM TYPE: CAT - CT HEAD WO IV CONTRAST EXAMINATION: CT HEAD WITHOUT CONTRAST CLINICAL INFORMATION: Seizure. COMPARISON: CT head October 26, 2016 TECHNIQUE: Contiguous axial imaging was performed from the skull base to vertex without intravenous administration of contrast. DLP: 694.34 mGy-cm FINDINGS: There is no evidence of acute intracranial hemorrhage or territorial infarction. No abnormal mass effect or midline shift is seen. [place] to white matter differentiation is well preserved. No extra-axial fluid collections are identified. There is atrophy with prominence of the ventricles and the sulci and hypodensity of the periventricular white matter due to chronic small vessel ischemic disease. There is vascular calcifications of the internal carotid arteries bilaterally. The osseous structures and soft tissues are normal. The mastoid air cells and visualized portions of the paranasal sinuses are well aerated. IMPRESSION: No acute intracranial pathology. DICTATED BY: Gaston Reynaga MD DATE/TIME DICTATED:249 C++ QUANT DEVELOPER:CARRASCO DATE/TIME TRANSCRIBED:01/02/18249 CONFIDENTIAL, DO NOT COPY WITHOUT APPROPRIATE AUTHORIZATION. <Electronically signed in Other Vendor System> SIGNED BY: Gaston Reynaga MD 01/02/18255 CXR Impression: PATIENT: CLIFTON QUIÑONES PRESENT AGE: 72 PATIENT ACCOUNT NO: [id number] : 47 LOCATION: [facility] ORDERING PHYSICIAN: Tommy Rosas MD SERVICE DATE: 01/02/18 EXAM TYPE: RAD - XRY- PORTABLE CHEST XRAY EXAMINATION: XR PORTABLE CHEST CLINICAL INFORMATION: Dyspnea. COMPARISON: Chest x-ray October 26, 2016 TECHNIQUE: Portable frontal view of the chest was obtained. 2:20 AM FINDINGS: Cardiomediastinal contours are unchanged. There is no pulmonary vascular congestion. The lungs are clear. There is no pleural effusion or pneumothorax. IMPRESSION: No acute abnormality of the chest. DICTATED BY: Gaston Reynaga MD DATE/TIME DICTATED:01/02/18252 C++ QUANT DEVELOPER:RADMurtazaCARRASCO DATE/TIME TRANSCRIBED:01/02/18252 CONFIDENTIAL, DO NOT COPY WITHOUT APPROPRIATE AUTHORIZATION. <Electronically signed in Other Vendor System> SIGNED BY: Gaston Reynaga MD 01/02/18256 Initial ED EKG: none Departure Departure Disposition: STILL A PATIENT Condition: Stable Clinical Impression Primary Impression: Status epilepticus Referrals: Sirisha Landa MD (PCP/Family) Departure Forms: Customer Survey General Discharge Information Admission Note Spoke With: Kong Mohan MD Documentation of Exam: Documentation of any treatments & extenuating circumstances including Concerns Regarding Discharge (functional status, medication knowledge or non-compliance, living conditions, etc.) that warrant an admission rather than observation: Pt presented with status epilepticus, now stable after ativan iv and keppra load. still slightly hypoxic ... likely due to aspiration event... cxr wnl, wbc benign... 02 sat 97% on room air... will follow clinically. neuro to consult in the AM. Critical Care Note Critical Care Note Critical Care Time: 30-74 min
[2018-01-02 01:39] LABS: ABSOLUTE BASOPHIL COUNT 0 /CUMM (0.0-0.2); ABSOLUTE EOSINOPHIL COUNT 0.1 /CUMM (0.0-0.7); ABSOLUTE GRANULOCYTE CT 10.8 /CUMM (1.4-6.5); ABSOLUTE LYMPH COUNT 1.2 /CUMM (1.2-3.4); ABSOLUTE MONOCYTE COUNT 0.5 /CUMM (0.10-0.60); BASOPHIL % 0.2 % (0.0-2.0); EOSINOPHIL % 1.1 % (0-5); HEMATOCRIT 42.6 % (42-52); MEAN CORPUSCULAR VOLUME 85.3 FL (80.0-94.0); MEAN PLATELET VOLUME 7.7 FL (7.4-10.4); PLATELET COUNT 356 /CUMM (130-400); WHITE BLOOD CELL COUNT 12.7 /CUMM (4.8-10.8)
--- NOTE | 2018-01-02 02:56 | CT SCAN REPORT ---
EXAMINATION: CT HEAD WITHOUT CONTRAST CLINICAL INFORMATION: Seizure. COMPARISON: CT head October 26, 2016 TECHNIQUE: Contiguous axial imaging was performed from the skull base to vertex without intravenous administration of contrast. DLP: 694.34 mGy-cm FINDINGS: There is no evidence of acute intracranial hemorrhage or territorial infarction. No abnormal mass effect or midline shift is seen. [place] to white matter differentiation is well preserved. No extra-axial fluid collections are identified. There is atrophy with prominence of the ventricles and the sulci and hypodensity of the periventricular white matter due to chronic small vessel ischemic disease. There is vascular calcifications of the internal carotid arteries bilaterally. The osseous structures and soft tissues are normal. The mastoid air cells and visualized portions of the paranasal sinuses are well aerated. IMPRESSION: No acute intracranial pathology.
--- NOTE | 2018-01-02 02:57 | RADIOLOGY REPORT ---
EXAMINATION: XR PORTABLE CHEST CLINICAL INFORMATION: Dyspnea. COMPARISON: Chest x-ray October 26, 2016 TECHNIQUE: Portable frontal view of the chest was obtained. 2:20 AM FINDINGS: Cardiomediastinal contours are unchanged. There is no pulmonary vascular congestion. The lungs are clear. There is no pleural effusion or pneumothorax. IMPRESSION: No acute abnormality of the chest.
[2018-01-02] MEDS ORDERED: LIPITOR40 M1 PO (04:45)
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
--- NOTE | 2018-01-02 06:02 | Admission Certification ---
Admission Certification Certification Statement - As attending physician, I certify that at the time of - admission, based on clinical presentation, severity of - symptoms, need for further diagnostic testing and - therapeutic interventions, and risk of adverse outcomes - without in-hospital treatment, in my clinical assessment, - this patient requires an acute hospital stay for a minimum - of two nights or longer. I have also considered psychsocial - factors such as support system, advanced age, financial - issues, cognitive issues, and failed out-patient treatments, - past re-admission history, safety of patient, and lack of - compliance as applicable. Specific rationale supporting this admission is: Acute hypoxic respiratory failure, breakthrough seizures.
[2018-01-02 06:14] LABS: ABSOLUTE BASOPHIL COUNT 0 /CUMM (0.0-0.2); ABSOLUTE EOSINOPHIL COUNT 0 /CUMM (0.0-0.7); ABSOLUTE GRANULOCYTE CT 13.7 /CUMM (1.4-6.5); ABSOLUTE LYMPH COUNT 0.7 /CUMM (1.2-3.4); ABSOLUTE MONOCYTE COUNT 0.7 /CUMM (0.10-0.60); BASOPHIL % 0 % (0.0-2.0); EOSINOPHIL % 0.2 % (0-5); GRANULOCYTE % 90.5 % (42.2-75.2); HEMATOCRIT 40.4 % (42-52); MEAN CORPUSCULAR HGB 28.5 PG (27.0-31.0); MEAN CORPUSCULAR HGB CONC 32.9 G/DL (33.0-37.0); MEAN CORPUSCULAR VOLUME 86.5 FL (80.0-94.0); MEAN PLATELET VOLUME 7.8 FL (7.4-10.4); PLATELET COUNT 265 /CUMM (130-400); RBC DISTRIBUTION WIDTH 12.9 % (11.5-14.5); RED BLOOD CELL CT 4.67 /CUMM (4.70-6.10); WHITE BLOOD CELL COUNT 15.1 /CUMM (4.8-10.8)
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
--- NOTE | 2018-01-02 16:00 | MRI REPORT ---
EXAMINATION: MR BRAIN WITHOUT CONTRAST CLINICAL INFORMATION: Partial tonic-clonic seizure. COMPARISON: Head CT performed earlier the same day and brain MRI 10/28/2016. TECHNIQUE: MRI of the brain without contrast was obtained using routine sequences. FINDINGS: Stable appearing chronic infarcts within the left and right cerebellar hemisphere. Chronic lacunar infarct within the dorsal lissy is again noted. Small chronic cortical/subcortical infarcts within the right parietal lobe and left frontal lobe. There is global cerebral volume loss and there is chronic microangiopathy that is similar to the prior study. In the setting of new onset seizure, postcontrast imaging could be obtained for more definitive assessment. There is no hydrocephalus, extra-axial surface collection, or herniation. The hippocampi are symmetric in size and normal in morphology without evidence of intrinsic signal abnormality. The major flow voids at the skull base are preserved. There is no acute infarct on diffusion-weighted imaging. There is no intracranial hemorrhage on the gradient recalled echo acquisition. The midline structures are normal. The cerebellar tonsils are normally positioned. The craniocervical junction is normal. Osseous marrow signal intensity is homogenous. The visualized soft tissues are unremarkable. Small mucosal thickening within the maxillary sinuses and throughout the ethmoid air cells bilaterally. IMPRESSION: - No acute intracranial findings. No acute infarcts and no intracranial hemorrhage. No mesial temporal sclerosis. In the setting of new onset seizure, postcontrast imaging could be obtained for more definitive assessment. 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
[2018-01-02 22:26] VITALS: BP 128/62
[2018-01-03 07:15] VITALS: BP 120/76
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
[2018-01-03 08:44] LABS: ABSOLUTE BASOPHIL COUNT 0 /CUMM (0.0-0.2); ABSOLUTE EOSINOPHIL COUNT 0.2 /CUMM (0.0-0.7); ABSOLUTE GRANULOCYTE CT 5.2 /CUMM (1.4-6.5); ABSOLUTE LYMPH COUNT 1.6 /CUMM (1.2-3.4); ABSOLUTE MONOCYTE COUNT 0.6 /CUMM (0.10-0.60); BASOPHIL % 0.3 % (0.0-2.0); EOSINOPHIL % 2.9 % (0-5); GRANULOCYTE % 68.3 % (42.2-75.2); HEMATOCRIT 38.5 % (42-52); MEAN CORPUSCULAR HGB 29.1 PG (27.0-31.0); MEAN CORPUSCULAR HGB CONC 33.8 G/DL (33.0-37.0); MEAN CORPUSCULAR VOLUME 86.1 FL (80.0-94.0); MEAN PLATELET VOLUME 8.5 FL (7.4-10.4); PLATELET COUNT 244 /CUMM (130-400); RBC DISTRIBUTION WIDTH 13.2 % (11.5-14.5); RED BLOOD CELL CT 4.48 /CUMM (4.70-6.10); WHITE BLOOD CELL COUNT 7.6 /CUMM (4.8-10.8)
--- NOTE | 2018-01-03 09:18 | ELECTROENCEPHALOGRAM REPORT ---
Electroencephalogram Report Electroencephalogram Results Date of service: 01/02/18 Attending MD: Yaz MAJOR,Juliette Pires Shell Press Operator: Deisy Collado EEG Number: [id number] Test Utilizes: 10-20 system, 21 lead 18 channel digital recording Pertinent Hx/Physical/Neuro Findings/Clin Diagnosis: Breakthrough seizure, patient receiving Kera Inpatient Medications: Current Medications Sig/Cristo Start time Last Medication Dose Route Stop Time Status Admin Acetaminophen 650 MG Q6P PRN 01/02 0445 AC PO Ampicillin Sodium/ 0 .STK-MED ONE 01/02 1123 DC Sulbactam Sodium .ROUTE Ampicillin Sodium/ 1,500 MG Q6 01/02 0700 AC 01/03 Sulbactam Sodium IV 0558 Sodium Chloride 100 ML Aspirin 0 .STK-MED ONE 01/02 0915 DC PO Aspirin Buffered 81 MG DAILY 01/02 1000 AC 01/03 PO 0853 Atorvastatin Calcium 40 MG DAILY 01/02 1000 AC 01/03 PO 0852 Diltiazem HCl 180 MG DAILY 01/02 1000 AC 01/03 PO 0852 Enoxaparin Sodium 40 MG DAILY 01/02 1000 AC 01/03 SC 0853 Enoxaparin Sodium 0 .STK-MED ONE 01/02 0915 DC SC Lacosamide 50 MG BID 01/02 1253 AC 01/02 PO 2335 Levetiracetam 1,500 MG Q12H 01/02 1230 AC 01/03 N/A 1 UNIT IV 0051 Levetiracetam 1,500 MG Q12 01/02 1000 DC N/A 1 UNIT IV Levothyroxine Sodium 0.1 MG DAILY 01/02 1000 AC 01/03 PO 0854 Sertraline HCl 100 MG DAILY 01/02 1000 AC 01/03 PO 0853 Sodium Chloride 1,000 ML Q13H 01/02 0515 DC 01/02 IV 01/03 0714 1751 Interpretation: The background over the left hemisphere is composed o flow voltage intermixed beta and posterior alpha frequencies, on the right there is continuous slowing in the theta range with some 3 hz delta intermixed. No epileptiform discharges are seen. Hyerventilation deferred, photic adds no further information Impression: Abnormal due to slowing over the right hemisphere, normal background on left, no epileptiform discharges.
--- NOTE | 2018-01-03 13:13 | PN- Att Addend ---
Attending Addendum Attending Brief Note Patient seen and examined. Plan of care discussed with the medical team and the patient. Available lab work and radiology test reports were reviewed. Patient is found to be awake but slightly lethargic. His able to answer questions and is oriented. He denies any headache or neck stiffness chest pain fever chills nausea vomiting diarrhea or abdominal pain. Exam: General: Patient awake oriented without any distress CVS: S1 plus S2 without any murmur or gallops Chest: Few scattered crepitation without any wheeze. There is no respiratory distress. 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 without any focal neuro deficit and follows commands appropriately Extremities: No edema; no clubbing or cyanosis noted Current Medications Sig/Cristo Start time Last Medication Dose Route Stop Time Status Admin Acetaminophen 650 MG Q6P PRN 01/02 0445 AC PO Ampicillin Sodium/ 1,500 MG Q6 01/02 0700 AC 01/03 Sulbactam Sodium IV 1201 Sodium Chloride 100 ML Aspirin Buffered 81 MG DAILY 01/02 1000 AC 01/03 PO 0853 Atorvastatin Calcium 40 MG DAILY 01/02 1000 AC 01/03 PO 0852 Diltiazem HCl 180 MG DAILY 01/02 1000 AC 01/03 PO 0852 Enoxaparin Sodium 40 MG DAILY 01/02 1000 AC 01/03 SC 0853 Lacosamide 50 MG BID 01/02 1253 AC 01/03 PO 0930 Levetiracetam 1,500 MG Q12H 01/02 1230 AC 01/03 N/A 1 UNIT IV 1209 Levothyroxine Sodium 0.1 MG DAILY 01/02 1000 AC 01/03 PO 0854 Sertraline HCl 100 MG DAILY 01/02 1000 AC 01/03 PO 0853 Sodium Chloride 1,000 ML Q13H 01/02 0515 DC 01/02 IV 01/03 0714 1751 Laboratory Tests 01/03/ 0620: CBC w Diff NO MAN DIFF REQ, RBC 4.48 L, MCV 86.1, MCH 29.1, MCHC 33.8, RDW 13.2 , MPV 8.5, Gran % 68.3, Lymphocytes % 20.7, Monocytes % 7.8, Eosinophils % 2.9, Basophils % 0.3, Absolute Granulocytes 5.2, Absolute Lymphocytes 1.6, Absolute Monocytes 0.6, Absolute Eosinophils 0.2, Absolute Basophils 0 01/02/18 0550: Anion Gap 11, Estimated GFR > 60, BUN/Creatinine Ratio 25.0, CBC w Diff MAN DIFF ORDERED, RBC 4.67 L, MCV 86.5, MCH 28.5, MCHC 32.9 L, RDW 12.9, MPV 7.8, Gran % 90.5 H, Lymphocytes % 4.5 L, Monocytes % 4.8, Eosinophils % 0.2, Basophils % 0, Absolute Granulocytes 13.7 H, Segmented Neutrophils 85 H, Band Neutrophils 3, Absolute Lymphocytes 0.7 L, Lymphocytes 8 L, Monocytes 4, Absolute Monocytes 0.7 H, Absolute Eosinophils 0, Absolute Basophils 0, Platelet Estimate ADEQUATE, Normocytic RBCs VERIFIED, Normochromic RBCs VERIFIED, Stomatocytes FEW 01/02/18 0310: pH 7.42, pCO2 41, pO2 64 L, HCO3 26, ABG O2 Sat (Measured) 92.0 L, P-50 (Temp Corrected) N, Carboxyhemoglobin 0 L, O2 Concentration % RA, Phlebotomy Draw Site RIGHT RADIAL 01/02/18 0155: Urine Opiates Screen < 100, Methadone Screen 53, Barbiturate Screen < 60, Ur Phencyclidine Scrn < 6.00, Amphetamines Screen < 100, U Benzodiazepines Scrn 119 , Urine Cocaine Screen < 50, Urine Cannabis Screen < 5.00, Urinalysis HEAVY H, Urine Color YEL, Urine Clarity HAZY H, Urine pH 5.5, Ur Specific Cuddy >= 1.030, Urine Protein 100 H, Urine Ketones NEG, Urine Nitrite NEG, Urine Bilirubin NEG, Urine Urobilinogen 0.2, Ur Leukocyte Esterase NEG, Ur Microscopic SEDIMENT EXAMINED, Urine RBC 1-3, Urine WBC RARE, Ur Epithelial Cells FEW, Urine Bacteria RARE H, Urine Mucus MOD H, Urine Hemoglobin TRACE-INTACT H, Urine Glucose NEG 01/02/18 0134: Anion Gap 23 H, Estimated GFR > 60, BUN/Creatinine Ratio 17.0, Glucose 127 H, Calcium 10.1, Total Bilirubin 0.5, Direct Bilirubin 0.4, AST 34, ALT 49, Alkaline Phosphatase 115, Troponin I < 0.01, Total Protein 7.0, Albumin 4.6, Amylase 200 H, Lipase 235, Prolactin 22.9 H, CBC w Diff NO MAN DIFF REQ, RBC 5.00, MCV 85.3, MCH 29.0, MCHC 34.0, RDW 13.0, MPV 7.7, Gran % 85.0 H, Lymphocytes % 9.8 L, Monocytes % 3.9, Eosinophils % 1.1, Basophils % 0.2, Absolute Granulocytes 10.8 H, Absolute Lymphocytes 1.2, Absolute Monocytes 0.5, Absolute Eosinophils 0.1, Absolute Basophils 0, Serum Alcohol < 10.0 Microbiology 01/02 0710 NASOPHARYN: Influenza Virus A & B Rapid Smear - COMP 01/03 652 URINE ROUT: Urine Culture - COLB 01/02 651 LOWER RESP: Respiratory Culture - COLB 01/02 651 LOWER RESP: Gram Stain - COLB 01/03 136 BLOOD: Blood Culture - RES 01/02 130 BLOOD: Blood Culture - RES Vital Signs Date Time Temp Pulse Resp B/P B/P Pulse O2 O2 Flow FiO2 Mean Ox Delivery Rate 01/03 0715 98.2 72 20 120/76 94 Room Air 01/02 2226 98.3 74 20 128/62 95 01/02 1542 97.5 70 18 131/82 96 Room Air Intake & Output 01/03 1600 01/03 0800 01/03 0000 Intake Total 550 200 Output Total 1450 Balance -900 200 Intake, IV 350 Intake, Oral 200 200 Output, Urine 1450 Patient [address] head January 02 show any abnormality Chest x-ray January 02 did not show any abnormality MRI January 02 - No acute intracranial findings. No acute infarcts and no intracranial hemorrhage. No mesial temporal sclerosis. In the setting of new onset seizure, postcontrast imaging could be obtained for more definitive assessment. 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 EEG Interpretation: The background over the left hemisphere is composed o flow voltage intermixed beta and posterior alpha frequencies, on the right there is continuous slowing in the theta range with some 3 hz delta intermixed. No epileptiform discharges are seen. Hyerventilation deferred, photic adds no further information Impression: Abnormal due to slowing over the right hemisphere, normal background on left, no epileptiform discharges. Assessment 1. Seizure 2. Acute hypoxic respitory Failure; Aspiration pneumonia currently on Unasyn 3. History of restless leg syndrome, 4. History of depression, hypothyroidism and SVT. Plan * Continue Keppra and locasamide * Follow chest x-ray report done today * Await further neurology input * Out of bed and ambulate with assist * PT eval to determine STIR need * Discharge planning
[2018-01-03 14:22] VITALS: BP 122/68
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
--- NOTE | 2018-01-03 15:40 | RADIOLOGY REPORT ---
EXAMINATION: XR CHEST CLINICAL INFORMATION: Suspected aspiration pneumonia. COMPARISON: Chest done on 01/02/2018. TECHNIQUE: 2 views of the chest were obtained. FINDINGS: Both lungs are mildly hyperexpanded. There is no discrete focal airspace disease present. The cardiomediastinal silhouette is within normal limit. There is no pleural effusion or pneumothorax present. Multilevel degenerative spondylosis is seen in the spine. IMPRESSION: No acute cardiopulmonary disease. Specifically, no radiographic evidence of pneumonia.
--- NOTE | 2018-01-03 17:09 | ULTRASOUND REPORT ---
EXAMINATION: DUPLEX BILATERAL CAROTID ULTRASOUND CLINICAL INFORMATION: Weakness, seizure, altered mental status. COMPARISON: None. TECHNIQUE: Duplex bilateral carotid US was performed using real-time ultrasound and Doppler techniques (integrating B-mode 2D vascular images, Doppler spectral analysis and color flow Doppler imaging). These techniques were utilized to interrogate the extracranial carotid and vertebral arteries bilaterally. The degree of stenosis is based off criteria similar to NASCET. FINDINGS: No plaque is seen at the carotid bifurcations or within the internal carotid arteries. All velocities are within normal limits. ADDITIONAL FINDINGS: The vertebral arteries show antegrade flow. The external carotid arteries appear normal. IMPRESSION: No evidence of a hemodynamically significant stenosis involving the internal carotid arteries.
[2018-01-03 23:12] VITALS: BP 126/84
[2018-01-04 07:13] VITALS: BP 120/70
[2018-01-04 08:21] LABS: ABSOLUTE BASOPHIL COUNT 0 /CUMM (0.0-0.2); ABSOLUTE EOSINOPHIL COUNT 0.4 /CUMM (0.0-0.7); ABSOLUTE GRANULOCYTE CT 4.9 /CUMM (1.4-6.5); ABSOLUTE LYMPH COUNT 1.6 /CUMM (1.2-3.4); ABSOLUTE MONOCYTE COUNT 0.8 /CUMM (0.10-0.60); BASOPHIL % 0.4 % (0.0-2.0); EOSINOPHIL % 4.9 % (0-5); HEMATOCRIT 37.9 % (42-52); MEAN CORPUSCULAR HGB CONC 33.9 G/DL (33.0-37.0); MEAN CORPUSCULAR VOLUME 85.5 FL (80.0-94.0); MEAN PLATELET VOLUME 8.6 FL (7.4-10.4); PLATELET COUNT 240 /CUMM (130-400); RBC DISTRIBUTION WIDTH 12.8 % (11.5-14.5); RED BLOOD CELL CT 4.43 /CUMM (4.70-6.10); WHITE BLOOD CELL COUNT 7.7 /CUMM (4.8-10.8)
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
--- NOTE | 2018-01-04 12:28 | PN- Att Addend ---
Attending Addendum Attending Brief Note Patient seen and examined. Plan of care discussed with the medical team and the patient. Available lab work and radiology test reports were reviewed. Patient denies any headache or neck stiffness chest pain fever chills nausea vomiting diarrhea or abdominal pain. Exam: General: Patient awake oriented without any distress CVS: S1 plus S2 without any murmur or gallops Chest: Few scattered crepitation without any wheeze. There is no respiratory distress. 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 Seizure 2. Acute hypoxic respitory Failure; Aspiration pneumonia currently on Unasyn 3. History of restless leg syndrome, 4. History of depression, hypothyroidism and SVT. Plan * Continue Keppra and locasamide * Out of bed and ambulate with assist * Continue PT with plans to home PT once his functional status is close to his baseline * Discharge planning * No need to repeat labs tomorrow Current Medications Sig/Cristo Start time Last Medication Dose Route Stop Time Status Admin Acetaminophen 650 MG Q6P PRN 01/02 0445 AC PO Ampicillin Sodium/ 1,500 MG Q6 01/02 0700 AC 01/04 Sulbactam Sodium IV 0619 Sodium Chloride 100 ML Aspirin Buffered 81 MG DAILY 01/02 1000 AC 01/04 PO 1016 Atorvastatin Calcium 40 MG DAILY 01/02 1000 AC 01/04 PO 1017 Diltiazem HCl 180 MG DAILY 01/02 1000 AC 01/04 PO 1017 Enoxaparin Sodium 40 MG DAILY 01/02 1000 AC 01/04 SC 1017 Lacosamide 50 MG BID 01/02 1253 AC 01/04 PO 1016 Levetiracetam 1,500 MG Q12H 01/02 1230 AC 01/04 N/A 1 UNIT IV 0005 Levothyroxine Sodium 0.1 MG DAILY 01/02 1000 AC 01/04 PO 1016 Potassium Chloride 40 MEQ ONCE ONE 01/04 1145 DC PO 01/04 1146 Sertraline HCl 100 MG DAILY 01/02 1000 AC 01/04 PO 1016 Laboratory Tests 01/04/18 0615: Anion Gap 12, Estimated GFR > 60, BUN/Creatinine Ratio 22.2, CBC w Diff NO MAN DIFF REQ, RBC 4.43 L, MCV 85.5, MCH 29.0, MCHC 33.9, RDW 12.8, MPV 8.6, Gran % 64.0, Lymphocytes % 20.3 L, Monocytes % 10.4 H, Eosinophils % 4.9, Basophils % 0.4, Absolute Granulocytes 4.9, Absolute Lymphocytes 1.6, Absolute Monocytes 0.8 H, Absolute Eosinophils 0.4, Absolute Basophils 0 01/03/18 0620: CBC w Diff NO MAN DIFF REQ, RBC 4.48 L, MCV 86.1, MCH 29.1, MCHC 33.8, RDW 13.2 , MPV 8.5, Gran % 68.3, Lymphocytes % 20.7, Monocytes % 7.8, Eosinophils % 2.9, Basophils % 0.3, Absolute Granulocytes 5.2, Absolute Lymphocytes 1.6, Absolute Monocytes 0.6, Absolute Eosinophils 0.2, Absolute Basophils 0 01/02/18 0550: Anion Gap 11, Estimated GFR > 60, BUN/Creatinine Ratio 25.0, CBC w Diff MAN DIFF ORDERED, RBC 4.67 L, MCV 86.5, MCH 28.5, MCHC 32.9 L, RDW 12.9, MPV 7.8, Gran % 90.5 H, Lymphocytes % 4.5 L, Monocytes % 4.8, Eosinophils % 0.2, Basophils % 0, Absolute Granulocytes 13.7 H, Segmented Neutrophils 85 H, Band Neutrophils 3, Absolute Lymphocytes 0.7 L, Lymphocytes 8 L, Monocytes 4, Absolute Monocytes 0.7 H, Absolute Eosinophils 0, Absolute Basophils 0, Platelet Estimate ADEQUATE, Normocytic RBCs VERIFIED, Normochromic RBCs VERIFIED, Stomatocytes FEW 01/02/18 0310: pH 7.42, pCO2 41, pO2 64 L, HCO3 26, ABG O2 Sat (Measured) 92.0 L, P-50 (Temp Corrected) N, Carboxyhemoglobin 0 L, O2 Concentration % RA, Phlebotomy Draw Site RIGHT RADIAL 01/02/18 0155: Urine Opiates Screen < 100, Methadone Screen 53, Barbiturate Screen < 60, Ur Phencyclidine Scrn < 6.00, Amphetamines Screen < 100, U Benzodiazepines Scrn 119 , Urine Cocaine Screen < 50, Urine Cannabis Screen < 5.00, Urinalysis HEAVY H, Urine Color YEL, Urine Clarity HAZY H, Urine pH 5.5, Ur Specific Gilliam >= 1.030, Urine Protein 100 H, Urine Ketones NEG, Urine Nitrite NEG, Urine Bilirubin NEG, Urine Urobilinogen 0.2, Ur Leukocyte Esterase NEG, Ur Microscopic SEDIMENT EXAMINED, Urine RBC 1-3, Urine WBC RARE, Ur Epithelial Cells FEW, Urine Bacteria RARE H, Urine Mucus MOD H, Urine Hemoglobin TRACE-INTACT H, Urine Glucose NEG 01/02/18 0134: Anion Gap 23 H, Estimated GFR > 60, BUN/Creatinine Ratio 17.0, Glucose 127 H, Calcium 10.1, Total Bilirubin 0.5, Direct Bilirubin 0.4, AST 34, ALT 49, Alkaline Phosphatase 115, Troponin I < 0.01, Total Protein 7.0, Albumin 4.6, Amylase 200 H, Lipase 235, Prolactin 22.9 H, CBC w Diff NO MAN DIFF REQ, RBC 5.00, MCV 85.3, MCH 29.0, MCHC 34.0, RDW 13.0, MPV 7.7, Gran % 85.0 H, Lymphocytes % 9.8 L, Monocytes % 3.9, Eosinophils % 1.1, Basophils % 0.2, Absolute Granulocytes 10.8 H, Absolute Lymphocytes 1.2, Absolute Monocytes 0.5, Absolute Eosinophils 0.1, Absolute Basophils 0, Serum Alcohol < 10.0 Microbiology 01/02 0710 NASOPHARYN: Influenza Virus A & B Rapid Smear - COMP 01/02 651 LOWER RESP: Respiratory Culture - CAN Cancelled: SPECIMEN NOT RECEIVED IN LABORATORY 01/02 651 LOWER RESP: Gram Stain - CAN Cancelled: SPECIMEN NOT RECEIVED IN LABORATORY 01/02 015 URINE ROUT: Urine Culture - RES 01/03 136 BLOOD: Blood Culture - RES 01/02 130 BLOOD: Blood Culture - RES Vital Signs Date Time Temp Pulse Resp B/P B/P Pulse O2 O2 Flow FiO2 Mean Ox Delivery Rate 01/04 0713 97.6 54 20 120/70 94 Nasal 3.5L Cannula 01/03 2312 98.2 69 20 126/84 96 01/03 1422 97.9 76 20 122/68 93 Room Air Intake & Output 01/04 1600 01/04 0800 01/04 0000 Intake Total 750 240 Output Total Balance 750 240 Intake, IV 350 Intake, Oral 400 240 Patient 193 lb Weight
--- NOTE | 2018-01-04 13:08 | ECHOCARDIOGRAM REPORT ---
CLIFTON QUIÑONES Age: 72 : 1945 Gender: M Exam Date: 01/04/2018 09:41 Exam Location: 1 [address] Ht (in): 67 Wt (lb): 198 BSA: 2.09 BP: 120 / 70 Ordering Physician: Gina Hollingsworth MD Referring Physician: Gina Hollingsworth MD Technologist: Bea Dumont [facility] Room Number: [id number] Indications: PERIPHERAL EMBOLIC EVENT Rhythm: Sinus Technical Quality: Good FINDINGS Left Ventricle Normal size left ventricle. Moderate concentric left ventricular hypertrophy. Normal left ventricular ejection fraction visually estimated at >65 %. No obvious regional wall motion abnormalities. Abnormal relaxation filling pattern of the left ventricle for age (stage 1 diastolic dysfunction). Right Ventricle The right ventricle is normal in size and function. Right Atrium The right atrium is normal in size. Left Atrium The left atrium is normal in size. The interatrial septum is intact. Mitral Valve Mild thickening/calcification of the mitral valve leaflets. Trace mitral regurgitation. Aortic Valve Structurally normal aortic valve without significant sclerosis or stenosis. There is no aortic regurgitation. Tricuspid Valve The tricuspid valve is normal in structure and function. There is trace tricuspid regurgitation. Pulmonary artery systolic pressure is normal. Pulmonic Valve Structurally normal pulmonic valve. There is trace pulmonic regurgitation. Pericardium Normal pericardium without effusion. No pleural effusion. Great Vessels Normal aortic root dimension. The aortic arch and great vessels are well seen and are normal. CONCLUSIONS Moderate concentric left ventricular hypertrophy. Normal left ventricular ejection fraction visually estimated at >65 Abnormal relaxation filling pattern of the left ventricle for age (stage 1 diastolic dysfunction). The left atrium is normal in size. Mild thickening/calcification of the mitral valve leaflets. Trace mitral regurgitation. Structurally normal aortic valve without significant sclerosis or stenosis. Pulmonary artery systolic pressure is normal. Selwyn Guerrier M.D. (Electronically Signed) Final Date: 04 January 2018 13:08 MEASUREMENTS (Male / Female) Normal Values 2D ECHO LV Diastolic Diameter PLAX 4.8 cm 4.2 - 5.9 / 3.9 - 5.3 cm LV Systolic Diameter PLAX 2.5 cm 2.1 - 4.0 cm LV Fractional Shortening PLAX 47.9 % 25 - 46 % LV Ejection Fraction 2D Teich 79.2 % IVS Diastolic Thickness 1.4 cm LVPW Diastolic Thickness 1.4 cm LV Relative Wall Thickness 0.6 RV Internal Dim ED PLAX 2.1 cm 1.9 - 3.8 cm LVOT Diameter 2.4 cm Aortic Root Diameter 3.2 cm LA Systolic Diameter LX 4.5 cm 3.0 - 4.0 / 2.7 - 3.8 cm LA Volume 40.0 cm 18 - 58 / 22 - 52 cm Ascending Aorta Diameter 3.2 cm DOPPLER AV Peak Velocity 106.0 cm/s AV Peak Gradient 4.5 mmHg AV Mean Velocity 79.2 cm/s AV Mean Gradient 3.0 mmHg AV Velocity Time Integral 26.0 cm LVOT Peak Velocity 90.2 cm/s LVOT Peak Gradient 3.3 mmHg LVOT Mean Velocity 59.2 cm/s LVOT Mean Gradient 2.0 mmHg LVOT Velocity Time Integral 20.4 cm LVOT Stroke Volume 92.3 cm AV Area Cont Eq vti 3.5 cm AV Area Cont Eq pk 3.8 cm MV Peak Velocity 120.0 cm/s MV Peak Gradient 5.8 mmHg MV Mean Velocity 63.7 cm/s MV Mean Gradient 2.0 mmHg Mitral E Point Velocity 89.8 cm/s Mitral A Point Velocity 97.7 cm/s Mitral E to A Ratio 0.9 MV PHT Velocity 99.9 cm/s MV Deceleration [place] 396.0 cm/s MV Pressure Half Time 75.7 ms MV Area PHT 2.9 cm MV Deceleration Time 275.0 ms TR Peak Velocity 244.0 cm/s TR Peak Gradient 23.8 mmHg Right Atrial Pressure 5.0 mmHg Pulmonary Artery Systolic Pressu 28.8 mmHg Right Ventricular Systolic Press 28.8 mmHg PV Peak Velocity 95.1 cm/s PV Peak Gradient 3.6 mmHg PV Mean Velocity 66.2 cm/s PV Mean Gradient 2.0 mmHg PV Velocity Time Integral 21.8 cm LV E' Lateral Velocity 10.0 cm/s Mitral E to LV E' Lateral Ratio 9.0 LV E' Septal Velocity 5.6 cm/s Mitral E to LV E' Septal Ratio 16.2
[2018-01-04 15:06] VITALS: BP 130/78
--- NOTE | 2018-01-04 18:26 | PN- Neurology ---
Subjective Subjective: The patient reports he may have experienced a "seizure aura" today. He states that he had intermittent numbness of his left foot. He is otherwise feeling well. Objective Vital Signs and I&Os Vital Signs Date Time Temp Pulse Resp B/P B/P Pulse O2 O2 Flow FiO2 Mean Ox Delivery Rate 01/04 1506 97.5 75 20 130/78 93 Room Air 01/04 0713 97.6 54 20 120/70 94 Nasal 3.5L Cannula 01/03 2312 98.2 69 20 126/84 96 Intake & Output 01/04 1600 01/04 0800 01/04 0000 01/03 1600 01/03 0801/03 0000 Intake Total 750 240 500 550 200 Output Total 1450 Balance 750 240 500 -900 200 Intake, IV 350 350 Intake, Oral 400 240 500 200 200 Number 1 Bowel Movements Output, Urine 1450 Patient 193 lb 198 lb Weight Physical Exam: Awake alert oriented 3 Speech fluent No dysarthria Full extraocular motility Symmetric facial movements Motor 5 out of 5 Current Medications: Current Medications Sig/Cristo Start time Last Medication Dose Route Stop Time Status Admin Acetaminophen 650 MG Q6P PRN 01/02 0445 AC PO Ampicillin Sodium/ 1,500 MG Q6 01/02 0700 AC 01/04 Sulbactam Sodium IV 1800 Sodium Chloride 100 ML Aspirin Buffered 81 MG DAILY 01/02 1000 AC 01/04 PO 1016 Atorvastatin Calcium 40 MG DAILY 01/02 1000 AC 01/04 PO 1017 Diltiazem HCl 180 MG DAILY 01/02 1000 AC 01/04 PO 1017 Enoxaparin Sodium 40 MG DAILY 01/02 1000 AC 01/04 SC 1017 Lacosamide 50 MG BID 01/02 1253 AC 01/04 PO 1016 Levetiracetam 1,500 MG Q12H 01/02 1230 AC 01/04 N/A 1 UNIT IV 1300 Levothyroxine Sodium 0.1 MG DAILY 01/02 1000 AC 01/04 PO 1016 Potassium Chloride 40 MEQ ONCE ONE 01/04 1145 DC 01/04 PO 01/04 1146 1332 Sertraline HCl 100 MG DAILY 01/02 1000 AC 01/04 PO 1016 Results Last 24 Hours of Lab Results: Laboratory Tests 01/04 0615 Chemistry Sodium (137 - 145 mmol/L) 142 Potassium (3.5 - 5.1 mmol/L) 3.5 Chloride (98 - 107 mmol/L) 102 Carbon Dioxide (22 - 30 mmol/L) 29 Anion Gap (5 - 16) 12 BUN (9 - 20 mg/dL) 20 Creatinine (0.7 - 1.2 mg/dL) 0.9 Estimated GFR (>60 ml/min) > 60 BUN/Creatinine Ratio (7 - 25 %) 22.2 Hematology CBC w Diff NO MAN DIFF REQ WBC (4.8 - 10.8 /CUMM) 7.7 RBC (4.70 - 6.10 /CUMM) 4.43 L Hgb (14.0 - 18.0 G/DL) 12.8 L Hct (42 - 52 %) 37.9 L MCV (80.0 - 94.0 FL) 85.5 MCH (27.0 - 31.0 PG) 29.0 MCHC (33.0 - 37.0 G/DL) 33.9 RDW (11.5 - 14.5 %) 12.8 Plt Count (130 - 400 /CUMM) 240 MPV (7.4 - 10.4 FL) 8.6 Gran % (42.2 - 75.2 %) 64.0 Lymphocytes % (20.5 - 51.1 %) 20.3 L Monocytes % (1.7 - 9.3 %) 10.4 H Eosinophils % (0 - 5 %) 4.9 Basophils % (0.0 - 2.0 %) 0.4 Absolute Granulocytes (1.4 - 6.5 /CUMM) 4.9 Absolute Lymphocytes (1.2 - 3.4 /CUMM) 1.6 Absolute Monocytes (0.10 - 0.60 /CUMM) 0.8 H Absolute Eosinophils (0.0 - 0.7 /CUMM) 0.4 Absolute Basophils (0.0 - 0.2 /CUMM) 0 Recent Imaging Studies: CONCLUSIONS Moderate concentric left ventricular hypertrophy. Normal left ventricular ejection fraction visually estimated at >65 Abnormal relaxation filling pattern of the left ventricle for age (stage 1 diastolic dysfunction). The left atrium is normal in size. Mild thickening/calcification of the mitral valve leaflets. Trace mitral regurgitation. Structurally normal aortic valve without significant sclerosis or stenosis. Pulmonary artery systolic pressure is normal. Selwyn Guerrier M.D. (Electronically Signed) Final Date: 04 January 2018 13:08 Carotid ultrasound: DDITIONAL FINDINGS: The vertebral arteries show antegrade flow. The external carotid arteries appear normal. IMPRESSION: No evidence of a hemodynamically significant stenosis involving the internal carotid arteries. DICTATED BY: Humera Marin MD DATE/TIME DICTATED:01/03/181704 Assessment/Plan Assessment: 72-year-old man admitted with breakthrough seizure. MRI also shows old infarcts. Patient may be experiencing breakthrough auras despite Keppra 1500 mg twice a day and the addition of Vimpat 50 mg twice a day Plan: Please increase Vimpat to 100 mg twice a day Continue Keppra 1500 mg twice a day Continue antiplatelet and statin therapy for cerebral atherosclerosis/old subclinical strokes
[2018-01-04 23:00] VITALS: BP 136/92
[2018-01-05 06:00] VITALS: BP 122/70
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
--- NOTE | 2018-01-05 09:26 | PN- Neurology ---
Subjective Subjective: States he had several "auras" overnight with left arm and leg tingling and dizziness/lightheadedness Objective Vital Signs and I&Os Vital Signs Date Time Temp Pulse Resp B/P B/P Pulse O2 O2 Flow FiO2 Mean Ox Delivery Rate 01/05 0600 97.8 60 20 122/70 93 01/04 2300 97.4 62 20 136/92 95 01/04 1506 97.5 75 20 130/78 93 Room Air Intake & Output 01/05 1600 01/05 0800 01/05 0000 01/04 1600 01/04 0800 01/04 0000 Intake Total 340 100 750 240 Output Total Balance 340 100 750 240 Intake, IV 340 350 Intake, Oral 100 400 240 Number 1 Bowel Movements Patient 142 lb 193 lb Weight Weight Bed scale Measurement Method Physical Exam: Awake alert oriented Fluent speech Intact comprehension No dysarthria Full extraocular motility Symmetric facial movements Motor 5 out of 5 Current Medications: Current Medications Sig/Cristo Start time Last Medication Dose Route Stop Time Status Admin Acetaminophen 650 MG Q6P PRN 01/02 0445 AC PO Ampicillin Sodium/ 1,500 MG Q6 01/02 0700 AC 01/05 Sulbactam Sodium IV 0546 Sodium Chloride 100 ML Aspirin Buffered 81 MG DAILY 01/02 1000 AC 01/04 PO 1016 Atorvastatin Calcium 40 MG DAILY 01/02 1000 AC 01/04 PO 1017 Diltiazem HCl 180 MG DAILY 01/02 1000 AC 01/04 PO 1017 Enoxaparin Sodium 40 MG DAILY 01/02 1000 AC 01/04 SC 1017 Lacosamide 100 MG BID 01/05 1000 AC PO Lacosamide 50 MG BID 01/02 1253 DC 01/04 PO 2101 Levetiracetam 1,500 MG Q12H 01/02 1230 AC 01/04 N/A 1 UNIT IV 2357 Levothyroxine Sodium 0.1 MG DAILY 01/02 1000 AC 01/04 PO 1016 Lorazepam 2 MG ONE PRN 01/05 0215 AC IV Potassium Chloride 40 MEQ ONCE ONE 01/04 1145 DC 01/04 PO 01/04 1146 1332 Sertraline HCl 100 MG DAILY 01/02 1000 AC 01/04 PO 1016 Assessment/Plan Assessment: Symptomatic epilepsy following traumatic brain injury, admitted with breakthrough seizure and now resolved post ictal deficits while on Keppra 1500 mg twice a day at home. Vimpat added at 50 mg twice a day, now to be increased to 100 mg twice a day given recurrent auras. Cerebral atherosclerosis with old infarcts on brain MRI, unremarkable carotid ultrasound Plan: Continue Keppra 1500 mg twice a day Initiate Vimpat 100 mg twice a day Consider repeat EEG if auras continue Continue antiplatelet and statin therapy
[2018-01-05] MEDS ORDERED: VIMPAT50 M1 PO (14:18)
[2018-01-05] MEDS ORDERED: AUGMENTIN 875-1 EACH PO (14:20)
--- NOTE | 2018-01-05 14:21 | Patient Discharge Instructions ---
Discharge Instructions General Discharge Information Special Instructions: Please follow up with your pcp in 1 week. Please follow up with your neurologist in 1 week. We have given you Dr. Mar's contact info. Please continue your medications as perscribed. Acute Coronary Syndrome Inclusion Criteria At DC or during hospital stay patient has or had the following: ACS DIAGNOSIS No Discharge Core Measures Meds if any: Prescribed or Continued at Discharge Meds if any: NOT Prescribed or Continued at Discharge Congestive Heart Failure Inclusion Criteria At DC or during hospital stay patient has or had the following: CHF DIAGNOSIS No Discharge Core Measures Meds if any: Prescribed or Continued at Discharge Meds if any: NOT Prescribed or Continued at Discharge Cerebrovascular accident Inclusion Criteria At DC or during hospital stay patient has or had the following: CVA/TIA Diagnosis No Discharge Core Measures Meds if any: Prescribed or Continued at Discharge Meds if any: NOT Prescribed or Continued at Discharge Venous thromboembolism Inclusion Criteria VTE Diagnosis No VTE Type NONE VTE Confirmed by (Test) NONE Discharge Core Measures - Per Current guidelines, there needs to be overlap - treatment for the first 5 days of Warfarin therapy. - If discharged on Warfarin prior to 5 days of - overlap therapy, the patient will need to be - assessed for post discharge needs including - *Post discharge parental anticoagulation - *Warfarin and/or parental anticoagulation education - *Follow up date to check INR post discharge At least 5 days overlap therapy as Inpatient No Meds if any: Prescribed or Continued at Discharge Note: Overlap Therapy is Warfarin and Anticoagulant Meds if any: NOT Prescribed or Continued at Discharge
[2018-01-05 14:40] VITALS: BP 142/60
[2018-01-05 15:35] VITALS: BP 126/70
[2018-01-05 21:49] VITALS: BP 140/78
[2018-01-06 06:45] VITALS: BP 108/60
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
[2018-01-06 14:08] VITALS: BP 130/70
--- NOTE | 2018-01-06 14:25 | PN- Neurology ---
Subjective Subjective: OCCASIONAL TINGLING LIKE AURA TOLERATES VIMPAT WELL NO OVERT SEIZURE MILDLY SEDATED Review of Systems: NO VOMITTING Objective Vital Signs and I&Os Vital Signs Date Time Temp Pulse Resp B/P B/P Pulse O2 O2 Flow FiO2 Mean Ox Delivery Rate 01/06 1408 98.0 77 18 130/70 93 Room Air 01/06 0645 98.2 67 20 108/60 92 Room Air 01/05 2149 97.6 85 20 140/78 93 Room Air 01/05 1535 98.0 63 20 126/70 94 Intake & Output 01/06 1600 01/06 0800 01/06 0000 01/05 1600 01/05 0800 01/05 0000 Intake Total 240 240 960 340 100 Output Total Balance 240 240 960 340 100 Intake, IV 200 340 Intake, Oral 240 240 760 100 Number 1 Bowel Movements Patient 199 lb 142 lb Weight Weight Chair scale Bed scale Measurement Method ALERT NO DYSARTHRIA Current Medications: Current Medications Sig/Cristo Start time Last Medication Dose Route Stop Time Status Admin Acetaminophen 650 MG Q6P PRN 01/02 0445 AC PO Amoxicillin/ 875 MG Q12 01/05 2200 AC 01/06 Clavulanate Potassium PO 01/06 2201 1018 Aspirin Buffered 81 MG DAILY 01/02 1000 AC 01/06 PO 1018 Atorvastatin Calcium 40 MG DAILY 01/02 1000 AC 01/06 PO 1018 Diltiazem HCl 180 MG DAILY 01/02 1000 AC 01/06 PO 1018 Enoxaparin Sodium 40 MG DAILY 01/02 1000 AC 01/06 SC 1019 Lacosamide 100 MG BID 01/05 1000 AC 01/06 PO 1018 Levetiracetam 1,500 MG BID 01/05 2200 AC 01/06 PO 1018 Levetiracetam 1,500 MG Q12H 01/02 1230 DC 01/05 N/A 1 UNIT IV 1245 Levothyroxine Sodium 0.1 MG DAILY 01/02 1000 AC 01/06 PO 1018 Lorazepam 2 MG ONE PRN 01/05 0215 AC IV Sertraline HCl 100 MG DAILY 01/02 1000 AC 01/06 PO 1018 Results Recent Imaging Studies: CT BRAIN IMPRESSION: No acute intracranial pathology. 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 EEG:Abnormal due to slowing over the right hemisphere, normal background on left , no epileptiform discharges. Assessment/Plan Assessment: SEIZURE DISORDER NO FURTHER SEIZURE OCCASIONAL 'AURA' RT SIDE OF TINGLING Plan: CONTINUE CURRENT DOSE KEPPRA/VIMPAT
[2018-01-07 07:41] VITALS: BP 112/56
[2018-01-07 08:10] LABS: ABSOLUTE BASOPHIL COUNT 0 /CUMM (0.0-0.2); ABSOLUTE EOSINOPHIL COUNT 0.4 /CUMM (0.0-0.7); ABSOLUTE GRANULOCYTE CT 3.8 /CUMM (1.4-6.5); ABSOLUTE LYMPH COUNT 1.3 /CUMM (1.2-3.4); ABSOLUTE MONOCYTE COUNT 0.6 /CUMM (0.10-0.60); BASOPHIL % 0.5 % (0.0-2.0); EOSINOPHIL % 6.8 % (0-5); GRANULOCYTE % 62.2 % (42.2-75.2); HEMATOCRIT 37.1 % (42-52); MEAN CORPUSCULAR HGB 29.1 PG (27.0-31.0); MEAN CORPUSCULAR HGB CONC 33.9 G/DL (33.0-37.0); MEAN CORPUSCULAR VOLUME 85.8 FL (80.0-94.0); MEAN PLATELET VOLUME 8.3 FL (7.4-10.4); PLATELET COUNT 214 /CUMM (130-400); RBC DISTRIBUTION WIDTH 13.1 % (11.5-14.5); RED BLOOD CELL CT 4.32 /CUMM (4.70-6.10); WHITE BLOOD CELL COUNT 6.2 /CUMM (4.8-10.8)
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
[2018-01-07 14:18] VITALS: BP 120/70
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
== END 2018-01-07 19:30 | disposition home health service (06) | DRG 100 ==
LOC: ERH 01:14 → 1NO 03:52 → ERHI 03:52 → EDBEDREQ 05:22 → ERHI 07:56 → ENRESERV 13:42 → CANRESERV 13:42 → ENRESERV 15:21 → ENTRNSPT 16:08 → EDTRNSPT 16:17 → EDTRNSPTSTS 16:17 → 1NO 16:25 → CMPTRNSPT 16:37 → ENPENDDIS 01-07 15:26 → 1NO 01-07 19:30
PROVIDERS: Hospitalist; Pediatrics; Student in an Organized Health Care Education/Training Program
DX: G40.901 Epilepsy, unspecified, not intractable, with status epilepticus (principal); J96.01 Acute respiratory failure with hypoxia; J69.0 Pneumonitis due to inhalation of food and vomit; I47.1 Supraventricular tachycardia; H53.462 Homonymous bilateral field defects, left side; I67.2 Cerebral atherosclerosis; R00.1 Bradycardia, unspecified; S06.9X0S Unspecified intracranial injury without loss of consciousness, sequela; G83.84 Todd's paralysis (postepileptic); E03.9 Hypothyroidism, unspecified; F32.9 Major depressive disorder, single episode, unspecified; G25.81 Restless legs syndrome; J45.909 Unspecified asthma, uncomplicated; Z66 Do not resuscitate; D72.829 Elevated white blood cell count, unspecified; I44.0 Atrioventricular block, first degree; V89.2XXS Person injured in unspecified motor-vehicle accident, traffic, sequela; Z79.899 Other long term (current) drug therapy; Z86.73 Personal history of transient ischemic attack (TIA), and cerebral infarction without residual deficits; Z87.891 Personal history of nicotine dependence
CPT/HCPCS: 1NP; 70551; 36592; 71045; 71046; 80307; 81001; 82436; 87040; 87070; 87086; 87804; 87804-59; 93005; 93010; 93306; 96365; 96375; 97110-GO; 97116-GO; 97161-GP; 97530-GO; G0480; J1650; J1953; J3490

== ENCOUNTER 2018-04-29 19:00 | Emergency (ER) | payer OTHER, MEDICARE ==
[~2018-04-29 19:00] MED LIST changes: +AUGMENTIN 875-1 EACH PO; +LIPITOR40 M1 PO; +VIMPAT50 M1 PO
--- NOTE | 2018-04-29 19:22 | ED GENERAL ADULT ---
History of Present Illness General Chief Complaint: General Adult Stated Complaint: BIBA FOR FALL Source: patient Exam Limitations: no limitations Vital Signs & Intake/Output Vital Signs & Intake/Output Vital Signs Date Time Temp Pulse Resp B/P B/P Pulse O2 O2 Flow FiO2 Mean Ox Delivery Rate 04/29 2239 97.7 82 16 132/77 97 Room Air 04/29 2010 97.3 80 18 136/76 98 Room Air 04/29 1902 98.2 89 18 143/79 94 Nasal 2.0L Cannula Allergies Coded Allergies: Iodinated Contrast- Oral and IV Dye (IODINATED CONTRAST MEDIA - ORAL AND) ( ANAPHYLAXIS 04/29/18) Reconcile Medications Aspirin (Ecotrin*) 81 MG TABLET.DR 1 TAB PO DAILY Heart Atorvastatin Calcium (Lipitor) 40 MG TABLET 1 TAB PO DAILY HLP (Reported) Diltiazem HCl (Cartia Xt) 180 MG CAP.ER.24H 1 CAP PO DAILY HEART/BP (Reported ) Lacosamide (Vimpat) 50 MG TABLET 2 TAB PO BID SEIZURE Levetiracetam (Keppra) 500 MG TABLET 1,500 MG PO BID Seizure Levothyroxine Sodium (Synthroid) 100 MCG TABLET 1 TAB PO DAILY THYROID ( Reported) Potassium Chloride 20 MEQ TAB.ER.PRT 1 TAB PO BID SUPPLEMENT (Reported) Sertraline HCl (Zoloft) 100 MG TABLET 1 TAB PO DAILY MENTAL HEALTH Triage Note: PT BIBA FROM HOME. PT REPORTS TO HAVE SUFFERED A SEIZURE TODAY AT APPROXIMATELY 1500 HRS. PT FELT HE WAS ABOUT TO HAVE ANOTHER SEIZURE FOR HE WENT TO HIS NEIGHBORS DOOR SEEKING HELP AND SUFFERED A FALL. HE DENIED LOC, FALL WAS NON-WITNESSED. MILITARY EXCHANGE WIRELESS MANAGER APPLIED C-COLLAR FOR PRECAUTION. HE DENIES PAIN OR DISCOMFORT AT THIS TIME. HE REPORTS TO BE COMPLIANT WITH ALL HIS MEDICATIONS. Triage Nurses Notes Reviewed? yes Onset: Abrupt Duration: minute(s): Timing: single episode today HPI: 73-year-old male with a history of seizures, TIA, asthma, SVT, depression, hypothyroid presenting status post seizure just prior to arrival. Patient reports that he was sitting on the toilet when he began to have an unwitnessed seizure. States that he fell off the toilet onto the bathroom floor and must have struck his head. Patient then was able to get himself off of the bathroom floor and went to his neighbor's house seeking help. Denies any anticoagulation. Denies nausea, vomiting, visual changes, confusion since the episode. Is currently on Keppra, Depakote, and vimpat for antiepileptics, and reports med compliance with all medications. Denies any recent fevers or infectious symptoms. Patient currently feels back to his baseline. (Batsheva Chaidez) Past History Travel History Traveled to [place] past 21 day No Medical History Any Pertinent Medical History? see below for history Neurological: seizure, TIA EENT: NONE Cardiovascular: SVT Respiratory: asthma Gastrointestinal: NONE Hepatic: NONE Renal: NONE Musculoskeletal: restless leg syndrome Psychiatric: depression Endocrine: HYPOTHYROID Blood Disorders: NONE Cancer(s): NONE History of MRSA: No History of VRE: No History of CDIFF: No Influenza Vaccine: 09/12/17 Surgical History Surgical History: non-contributory Psychosocial History What is your primary language Syriac Tobacco Use: Never used Family History Family History, If Any: FATHER FH: stroke Hx Contributory? No (Batsheva Chaidez) Review of Systems Review of Systems Constitutional: Reports: no symptoms. EENTM: Reports: no symptoms. Respiratory: Reports: no symptoms. Cardiovascular: Reports: no symptoms. GI: Reports: no symptoms. Genitourinary: Reports: no symptoms. Musculoskeletal: Reports: no symptoms. Skin: Reports: no symptoms. Neurological/Psychological: Reports: see HPI. Hematologic/Endocrine: Reports: no symptoms. Immunologic/Allergic: Reports: no symptoms. All Other Systems: Reviewed and Negative (Batsheva Chaidez) Physical Exam Physical Exam General Appearance: well developed/nourished, no apparent distress, alert, awake , comfortable Head: atraumatic, normal appearance Eyes: Bilateral: normal appearance, PERRL, EOMI. Ears, Nose, Throat: normal ENT inspection Neck: normal inspection, full range of motion, no midline tenderness Respiratory: normal breath sounds, chest non-tender, lungs clear Cardiovascular: regular rate/rhythm Gastrointestinal: soft, non-tender Back: normal inspection, normal range of motion, no vertebral tenderness Extremities: normal inspection, normal range of motion Neurologic/Psych: no motor/sensory deficits, awake, alert, oriented x 3, normal mood/affect, critical care cns II-XII nml as tested, cerebellar function intact Skin: intact, normal color, warm/dry Core Measures ACS in differential dx? No CVA/TIA Diagnosis: No Sepsis Present: No Sepsis Focused Exam Completed? No (Batsheva Chaidez) Progress Differential Diagnoses I considered the following diagnoses in my evaluation of the patient: [ Breakthrough seizure versus medication noncompliance versus infection versus metabolic derangement versus ICH versus vertebral fracture] Initial ED EKG: NSR, no ST T wave changes (Batsheva Chaidez) Plan of Care: Orders Procedure Date/time Status Add-on Test (ER Only) 04/29 2236 Active URINALYSIS 04/29 1922 Complete TROPONIN LEVEL 04/29 1922 Complete MAGNESIUM 04/29 1922 Complete CBC WITHOUT DIFFERENTIAL 04/29 1922 Complete BASIC METABOLIC PANEL 04/29 1922 Complete EKG 04/29 1922 Active Laboratory Tests 04/29/182214: Urine Color YEL, Urine Clarity CLEAR, Urine pH 7.0, Ur Specific [place] 1.020, Urine Protein >=300 H, Urine Ketones NEG, Urine Nitrite NEG, Urine Bilirubin NEG, Urine Urobilinogen 0.2, Ur Leukocyte Esterase NEG, Ur Microscopic SEDIMENT EXAMINED, Urine RBC RARE, Urine WBC RARE, Ur Epithelial Cells RARE, Urine Bacteria RARE H, Urine Hemoglobin SMALL H, Urine Glucose NEG 04/29/181937: Anion Gap 14, Estimated GFR > 60, BUN/Creatinine Ratio 16.7, Glucose 102 H, Calcium 10.1, Magnesium 1.7, Troponin I < 0.01, CBC w Diff NO MAN DIFF REQ, RBC 4.78, MCV 84.2, MCH 28.1, MCHC 33.4, RDW 13.9, MPV 8.6, Gran % 89.1 H, Lymphocytes % 6.3 L, Monocytes % 4.6, Eosinophils % 0, Basophils % 0, Absolute Granulocytes 8.4 H, Absolute Lymphocytes 0.6 L, Absolute Monocytes 0.4, Absolute Eosinophils 0, Absolute Basophils 0 Labs unremarkable. Depakote level was sent. CT head and C-spine were unremarkable. C-collar was cleared and patient has unrestricted spinal range of motion. Chest x-ray unremarkable. EKG is nonischemic. Discussed with the ED MD and patient is cleared for discharge. He will follow up with his primary care provider and his neurologist for reevaluation. Counseled on supportive care and given strict return precautions. (Batsheva Chaidez) (Zenon Robledo MD) Departure Departure Disposition: HOME OR SELF CARE Condition: Stable Clinical Impression Primary Impression: Seizure Secondary Impressions: Closed head injury Referrals: Syeda MAJOR,Sirisha Jones (PCP/Family) Additional Instructions: Follow-up with your neurologist for reevaluation. Return to the emergency department for any new or worsening symptoms. Departure Forms: Customer Survey General Discharge Information (Batsheva Chaidez) PA/CONFIGURATION CONSULTANT Co-Sign Statement Statement: ED Attending supervision documentation- [X] I saw and evaluated the patient. I have also reviewed all the pertinent lab results and diagnostic results. I agree with the findings and the plan of care as documented in the PA's/CONFIGURATION CONSULTANT's documentation. Patient presents for evaluation of a breakthrough seizure. Patient has been compliant with his medications and can identify no apparent trigger. Physical examination reveals a conversant patient with a nonfocal neurologic examination. [] I have reviewed the ED Record and agree with the PA's/CONFIGURATION CONSULTANT's documentation. [] Additions or exceptions (if any) to the PAs/CONFIGURATION CONSULTANT's note and plan are summarized below: [] (Meena MAJOR,Zenon Jones) Critical Care Note Critical Care Note Critical Care Time: non-applicable (Batsheva Chaidez)
[2018-04-29 19:53] LABS: ABSOLUTE BASOPHIL COUNT 0 /CUMM (0.0-0.2); ABSOLUTE EOSINOPHIL COUNT 0 /CUMM (0.0-0.7); ABSOLUTE GRANULOCYTE CT 8.4 /CUMM (1.4-6.5); ABSOLUTE LYMPH COUNT 0.6 /CUMM (1.2-3.4); ABSOLUTE MONOCYTE COUNT 0.4 /CUMM (0.10-0.60); BASOPHIL % 0 % (0.0-2.0); EOSINOPHIL % 0 % (0-5); HEMATOCRIT 40.3 % (42-52); MEAN CORPUSCULAR HGB 28.1 PG (27.0-31.0); MEAN CORPUSCULAR HGB CONC 33.4 G/DL (33.0-37.0); MEAN CORPUSCULAR VOLUME 84.2 FL (80.0-94.0); MEAN PLATELET VOLUME 8.6 FL (7.4-10.4); PLATELET COUNT 234 /CUMM (130-400); RBC DISTRIBUTION WIDTH 13.9 % (11.5-14.5); RED BLOOD CELL CT 4.78 /CUMM (4.70-6.10); WHITE BLOOD CELL COUNT 9.4 /CUMM (4.8-10.8)
[2018-04-29 20:09] LABS: GRANULOCYTE % 89.1 % (42.2-75.2)
--- NOTE | 2018-04-29 20:23 | CT SCAN REPORT ---
EXAMINATIONS: CT HEAD WITHOUT CONTRAST AND CT CERVICAL SPINE WITHOUT CONTRAST CLINICAL INFORMATION: Trauma to head. Seizure. COMPARISON: 01/02/2018. TECHNIQUE: Contiguous helical images of the brain were obtained without IV contrast. Contiguous helical images of the cervical spine were obtained without IV contrast. Multiplanar reconstructions were performed. DLP: 930 mGy-cm. FINDINGS: There are no pathologic extra-axial fluid collections. The lateral, third, fourth ventricles are mildly prominent, though stable, age-appropriate and concordant with the appearance of the sulci. There is no evidence for acute intraparenchymal hemorrhage or infarct. There is neither mass nor mass effect. There is no shift of midline structures. The paranasal sinuses and mastoid air cells are clear. There are no osseous lesions. The cervical vertebra are in normal alignment. Disc heights and vertebral heights are well-preserved. There is multilevel anterior osteophyte formation. There are no fractures. There is no prevertebral soft tissue swelling. There is no cervical lymphadenopathy. The visualized lung apices are clear. IMPRESSION: No evidence for acute intracranial injury. No evidence for acute injury to the cervical spine. Mild to moderate degenerative change within the cervical spine.
--- NOTE | 2018-04-29 21:39 | RADIOLOGY REPORT ---
EXAMINATION: CHEST 2 VIEWS CLINICAL INFORMATION: Cough. Pneumonia. COMPARISON: 01/03/2018. TECHNIQUE: PA and lateral views of the chest were obtained. FINDINGS: The cardiac silhouette is not enlarged. The mediastinal and hilar contours are unremarkable. There are neither pleural effusions nor pneumothoraces. There are no consolidations. The osseous structures are stable. IMPRESSION: No evidence for acute disease.
[2018-04-29 22:39] VITALS: BP 132/77
== END 2018-04-29 22:47 ==
LOC: ERH 19:00
PROVIDERS: Physician Assistant
DX: S09.90XA Unspecified injury of head, initial encounter (principal); R56.9 Unspecified convulsions; W18.11XA Fall from or off toilet without subsequent striking against object, initial encounter
CPT/HCPCS: 71046; 81001; 93005; 93010

== ENCOUNTER → 2018-06-10 | Day surgery (SDC) | payer OTHER, MEDICARE ==
[~2018-06-10] VITALS: Ht 165.1 cm; Wt 88.0 kg
--- NOTE | 2018-06-10 10:57 | Operative Report ---
Operative/Inv Procedure Report Surgery Date: 06/10/18 Name of Procedure: Robotic assisted laparoscopic bilateral inguinal hernia repair with mesh Pre-Operative Diagnosis: Bilateral inguinal hernia Post-Operative Diagnosis: Same Estimated Blood Loss: scant Surgeon/Payer Specialist: Refugio MAJOR,Lc Garcia/Sallie HURTADO Anesthesia: general endotracheal tube Implants: Parietex pro-supervisor money room Operative/Procedure Note Note: After consent patient brought to the operating room laid supine. General anesthesia was obtained and his abdomen was prepped and draped. Skin was observed local anesthesia at Copeland's point and a transverse incision made sharply. Access the peritoneum was gained percutaneously using an 8 mm optical trocar. Pneumoperitoneum was achieved. 2 more 8 mm ports were placed under direct vision in the transverse plane. The patient is placed in Trendelenburg, robot docked, targeted and instruments placed under direct vision. I then broke scrub and went to the console. There is a large indirect left inguinal hernia and large direct right inguinal hernia I then developed a preperitoneal flap by taking down the peritoneum just superior to the left-sided defect. We then developed the preperitoneal plane with scissor cautery. Medially we dissected down to the pubic tubercle and freed up to Chas's ligament. There is a large indirect hernia sac that was dissected free from the indirect space and the cord structures. It was delivered and reflected inferiorly.Once I was happy with the dissection, a 10 x 15 cm piece of parietex pro supervisor money room was placed in the cavity. Was placed over the defects and unraveled and self adhered to the fascial tissues. We then turned attention to the contralateral side. In a similar fashion, dissection was carried forth. There is no indirect hernia however there is a large direct hernia which was delivered and reflected inferiorly. Mesh was then placed in similar fashion. Once I was happy with the placement of both mesh the peritoneal flaps were closed with a running absorbable 2-0V lock suture. Sutures then removed and passed off the field. The ports were delivered and passed off the field. Skin incisions closed with 4-0 Vicryl. Steri-Strips and sterile dressing are applied. Sponge and needle counts are correct. Findings: Indirect left; direct right CC: Syeda MAJOR,Sirisha Jones
== END ==
LOC: STS 01:06
DX: K40.20 Bilateral inguinal hernia, without obstruction or gangrene, not specified as recurrent (principal); G40.909 Epilepsy, unspecified, not intractable, without status epilepticus; Z86.73 Personal history of transient ischemic attack (TIA), and cerebral infarction without residual deficits; J45.909 Unspecified asthma, uncomplicated; K21.9 Gastro-esophageal reflux disease without esophagitis; Z87.891 Personal history of nicotine dependence; E03.9 Hypothyroidism, unspecified
CPT/HCPCS: C1781; C9290; J0131; J0690; J2250; J3490